=== PATIENT | male | born 1975 | race Caucasian/White ===

== ENCOUNTER 2017-01-02 13:56 | Observation (INO) | payer BC ==
--- NOTE | 2017-01-02 14:31 | ERPHSYRPT ---
- History of Present Illness Time Seen by Provider: 01/02/17 14:09 Historian: patient Patient Subjective Stated Complaint: here for pain to left side of chest radiating at times to left arm and dizziness, since friday with nausea on friday ,pt has been able to work, Triage Nursing Assessment: pt alert ,resp easy, skin w/d pink, chest clear, no edema, Physician History: CC: chest pain Hx: 41 y/o patient of Dr Moe. He has long standing hx of afib. He has no hx of CAD. He has strong fam hx of throacic aortic aneurysm. He reports chest pain in left chest for 3 days, aching, at times worse. Not short of breath. No back pain. No cough. No abd pain. No prior episodes. He spoke to B[employer]ING[employer] INTERPRETER and was told to come to ER. No rash. He takes xarelto so ASA not given. Timing/Duration: day(s) (3) Nitro Today/Relief: no nitro taken today Aspirin Treatment Today: no aspirin today (as anticoagulated ) Allergies/Adverse Reactions: No Known Drug Allergies Allergy (Unverified 01/02/17 14:07) Home Medications: Nebivolol HCl [Bystolic] 10 mg DAILY 01/02/17 [History] Rivaroxaban [Xarelto] 20 mg DAILY 01/02/17 [History] Verapamil HCl Sr 180 mg [Isoptin Sr 180Mg] 180 mg DAILY 01/02/17 [History] Hx Tetanus, Diphtheria Vaccination/Date Given: No Hx Pneumococcal Vaccination/Date Given: No Immunizations Up to Date: Yes - Review of Systems Constitutional: No Fever, No Chills Eyes: No Symptoms Ears, Nose, & Throat: No Symptoms Respiratory: No Cough, No Dyspnea Cardiac: Chest Pain, No Edema Abdominal/Gastrointestinal: No Abdominal Pain, No Nausea, No Vomiting Genitourinary Symptoms: No Dysuria Musculoskeletal: No Back Pain Skin: No Rash Neurological: No Focal Weakness, No Headache, No Parasthesia All Other Systems: Reviewed and Negative - Past Medical History Pertinent Past Medical History: Yes Cardiac History: Arrhythmia (afib), Hypertension - Past Surgical History Past Surgical History: Yes Other Surgical History: nasal - Social History Smoking Status: Never smoker Exposure to second hand smoke: No Drug Use: none 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) - Nursing Vital Signs Nursing Vital Signs: Initial Vital Signs Temperature 97.2 F 01/02/17 13:57 Pulse Rate 62 01/02/17 13:57 Respiratory Rate 16 01/02/17 13:57 Blood Pressure 151/91 01/02/17 13:57 O2 Sat by Pulse Oximetry 96 01/02/17 13:57 Pain Scale Pain Intensity 4 - Physical Exam General Appearance: alert Eye Exam: PERRL/EOMI Ears, Nose, Throat Exam: normal ENT inspection, moist mucous membranes Neck Exam: normal inspection, non-tender, supple Respiratory Exam: normal breath sounds, lungs clear Cardiovascular Exam: regular rate/rhythm, No murmur, No friction rub, No pulse deficit (good femoral, radial, DP,PT pulses) Gastrointestinal/Abdomen Exam: soft, No tenderness, No distention Back Exam: normal inspection, normal range of motion Extremity Exam: normal inspection, normal range of motion Neurologic Exam: alert, oriented x 3, cooperative, sensation nml, No motor deficits Skin Exam: warm, dry, No rash SpO2 Interpretation: normal SpO2: 99 Oxygen Delivery: Room Air - Course Nursing assessment & vital signs reviewed: Yes EKG Interpreted by Me: RATE (61), Sinus Rhythm, Left Standish Deviation, Other ( prolonged QRS with atypical LBBB) Ordered Tests: Active Orders 24 hr Category Date Time Status Welt Wheeler STAT Care 01/02/17 14:17 Active EKG-ER Only STAT Care 01/02/17 14:17 Active IV Insertion STAT Care 01/02/17 14:17 Active Pulse Oximetry (ED) STAT Care 01/02/17 14:17 Active CHEST 2 VIEWS (PA AND LAT) Stat Exams 01/02/17 14:17 Completed CBC W DIFF Stat Lab 01/02/17 14:20 Completed CMP Stat Lab 01/02/17 14:20 Completed Manual Differential NC Stat Lab 01/02/17 14:20 Completed PROTIME WITH INR Stat Lab 01/02/17 14:20 Completed PTT Stat Lab 01/02/17 14:20 Completed TROPONIN Q3H Lab 01/02/17 14:20 Completed TROPONIN Q3H Lab 01/02/17 17:20 Completed TROPONIN Q3H Lab 01/02/17 20:30 Ordered TROPONIN Q3H Lab 01/02/17 23:30 Ordered TROPONIN Q3H Lab 01/03/17 02:30 Ordered Medication Summary Discontinued Medications Generic Name Dose Route Start Last Admin Trade Name Freq PRN Reason Stop Dose Admin Diphenhydramine HCl 25 mg 01/02/17 15:44 01/02/17 16:54 Benadryl 50 Mg/Ml IV 01/02/17 15:45 25 mg STAT ONE Administration Diphenhydramine HCl Confirm 01/02/17 16:49 Benadryl 50 Mg/Ml Administered 01/02/17 16:50 Dose 50 mg .ROUTE .STK-MED ONE Diphenhydramine HCl Confirm 01/02/17 16:58 Benadryl 50 Mg/Ml Administered 01/02/17 16:59 Dose 50 mg .ROUTE .STK-MED ONE Famotidine 20 mg 01/02/17 15:44 01/02/17 16:55 Pepcid 20 Mg Vial IV 01/02/17 15:45 20 mg STAT ONE Administration Famotidine Confirm 01/02/17 16:50 Pepcid 20 Mg Vial Administered 01/02/17 16:51 Dose 20 mg IV .STK-MED ONE Famotidine Confirm 01/02/17 16:58 Pepcid 20 Mg Vial Administered 01/02/17 16:59 Dose 20 mg IV .STK-MED ONE Ketorolac Tromethamine 30 mg 01/02/17 15:44 01/02/17 16:54 Toradol 30 Mg Injection IV 01/02/17 15:45 30 mg STAT ONE Administration Ketorolac Tromethamine Confirm 01/02/17 16:49 Toradol 30 Mg Injection Administered 01/02/17 16:50 Dose 30 mg .ROUTE .STK-MED ONE Ketorolac Tromethamine Confirm 01/02/17 16:58 Toradol 30 Mg Injection Administered 01/02/17 16:59 Dose 30 mg .ROUTE .STK-MED ONE Lab/Rad Data: Laboratory Result Diagrams 01/02/17 14:20 01/02/17 14:20 Laboratory Results 01/02/17 01/02/17 01/02/17 Range/Units 17:20 14:20 14:20 WBC (4.0-10.5) K/mm3 RBC (4.1-5.6) M/mm3 Hgb (12.5-18.0) gm/dl Hct (42-50) % MCV (78-100) fl MCH (26-32) pg MCHC (32-36) g/dl RDW (11.5-14.0) % Plt Count (150-450) K/mm3 MPV (6-9.5) fl Segmented Neutrophils (36.-66.) % Lymphocytes (Manual) (24-44) % Monocytes (Manual) (0.0-12.0) % Eosinophils (Manual) (0.00-3.0) % Differential Comment Platelet Estimate (NORMAL) INR 1.14 (0.8-3.0) APTT 41.9 H (24.1-36.1) SECONDS Sodium (136-145) mEq/L Potassium (3.5-5.1) mEq/L Chloride (98-107) mEq/L Carbon Dioxide (21-32) mEq/L Anion Gap (5-15) MEQ/L BUN (9-20) mg/dL Creatinine (0.55-1.30) mg/dl Estimated GFR ML/MIN Glucose (70-110) MG/DL Calcium (8.5-10.1) mg/dL Total Bilirubin (0.2-1.0) mg/dL AST (15-37) U/L ALT (12-78) U/L Alkaline Phosphatase (46-116) U/L Troponin I < 0.017 < 0.017 (0.000-0.056) ng/ml Serum Total Protein (6.4-8.2) gm/dL Albumin (3.4-5.0) g/dL 01/02/17 01/02/17 Range/Units 14:20 14:20 WBC 9.9 (4.0-10.5) K/mm3 RBC 5.65 H (4.1-5.6) M/mm3 Hgb 16.1 (12.5-18.0) gm/dl Hct 47.9 (42-50) % MCV 84.8 (78-100) fl MCH 28.4 (26-32) pg MCHC 33.6 (32-36) g/dl RDW 13.9 (11.5-14.0) % Plt Count 190 (150-450) K/mm3 MPV 10.8 H (6-9.5) fl Segmented Neutrophils 73 H (36.-66.) % Lymphocytes (Manual) 24 (24-44) % Monocytes (Manual) 2 (0.0-12.0) % Eosinophils (Manual) 1 (0.00-3.0) % Differential Comment NORMAL Platelet Estimate NORMAL (NORMAL) INR (0.8-3.0) APTT (24.1-36.1) SECONDS Sodium 141 (136-145) mEq/L Potassium 3.9 (3.5-5.1) mEq/L Chloride 105 (98-107) mEq/L Carbon Dioxide 25.9 (21-32) mEq/L Anion Gap 14.0 (5-15) MEQ/L BUN 12 (9-20) mg/dL Creatinine 0.88 (0.55-1.30) mg/dl Estimated GFR > 60 ML/MIN Glucose 97 (70-110) MG/DL Calcium 9.6 (8.5-10.1) mg/dL Total Bilirubin 0.40 (0.2-1.0) mg/dL AST 17 (15-37) U/L ALT 30 (12-78) U/L Alkaline Phosphatase 96 (46-116) U/L Troponin I (0.000-0.056) ng/ml Serum Total Protein 7.9 (6.4-8.2) gm/dL Albumin 4.1 (3.4-5.0) g/dL - Progress Progress Note: 01/02/17 15:46 Pain stable. Atypical. He does not seem too troubled by it. CAlled Dr Darwin Buenrostro. He advised home or obs. Pt prefers home. Will get 3 hour troponin. EKG faxed to Dr Buenrostro/[facility] office as it is abnl but not acutely so. No old EKG for comparison here or from cardiology office. 01/02/17 18:08 Repeat troponin negative. Offered pt observation or home. He wants to go home. Will Rx pepcid. He has follow up with Dr Buenrostro already established. Instr given. 01/02/17 18:17 Repeat EKG has inferior T wave changes. Called DR Anabel Aquino for BILINGUAL INTERPRETER Reintjes and will place in chest pain obs for serial trponin. Pt agrees. Counseled pt/family regarding: lab results, diagnosis, need for follow-up, rad results - Departure Time of Disposition: 18:18 Departure Disposition: Observation (Tele) Clinical Impression: Atypical chest pain Condition: Fair Critical Care Time: No Referrals: TREVOR LY [Primary Care Provider] - MELLO BUENROSTRO [NON-STAFF PHY W/O PRIVILEGES] - Instructions: Atypical Chest Pain Additional Instructions: Rest Follow up with Dr Buenrostro Return for worsening, change, or concerns. Rx pepcid.
--- NOTE | 2017-01-02 14:42 | XRAY ---
Indication: Left-sided chest pain. Comparison: None PA/lateral chest clear. Heart is not enlarged. Vascularity normal. Bony thorax intact with mild spinal degenerative changes. Impression: Nonacute chest.
[2017-01-02 14:45] LABS: INR 1.14 (0.8-3.0); PROTIME 12.9 SECONDS (8.83-12.87)
[2017-01-02 14:47] LABS: PTT 41.9 SECONDS (24.1-36.1)
[2017-01-02 14:53] LABS: ALBUMIN 4.1 g/dL (3.4-5.0); ALKALINE PHOSPHATASE 96 U/L (46-116); BLOOD UREA NITROGEN 12 mg/dL (9-20); CHLORIDE 105 mEq/L (98-107); Carbon Dioxide 25.9 mEq/L (21-32); Glucose 97 MG/DL (70-110); Potassium 3.9 mEq/L (3.5-5.1); SGOT/AST 17 U/L (15-37); SGPT/ALT 30 U/L (12-78); SODIUM 141 mEq/L (136-145); Total Protein 7.9 gm/dL (6.4-8.2)
[2017-01-02] MEDS ORDERED: Pepcid 20 MG VIAL IV ONE ×3 (15:44→16:58)
[2017-01-02] MEDS ORDERED: BENADRYL 50 MG/ML IV ONE (15:44)
[2017-01-02] MEDS ORDERED: TORAdol 30 mg Injection IV ONE (15:44)
[2017-01-02 15:55] LABS: Mean Cell Volume 84.8 fl (78-100); Mean Platelet Volume 10.8 fl (6-9.5); Platelet Count 190 K/mm3 (150-450); Red Blood Count 5.65 M/mm3 (4.1-5.6); Red Cell Distribution Width 13.9 % (11.5-14.0); White Blood Count 9.9 K/mm3 (4.0-10.5)
[2017-01-02 15:59] LABS: Mean Corpuscular Hemoglobin 28.4 pg (26-32)
[2017-01-02 16:42] LABS: Eosinophil 1 % (0.00-3.0); Platelet Estimate NORMAL (NORMAL); Total Cells Counted 100
[2017-01-02] MEDS ORDERED: BENADRYL 50 MG/ML ONE ×2 (16:49→16:58)
[2017-01-02] MEDS ORDERED: TORAdol 30 mg Injection ONE ×2 (16:49→16:58)
[2017-01-02] MEDS ORDERED: BABY ASPIRIN 81 MG CHEW PO ONE (18:16)
[2017-01-02] MEDS ORDERED: Zofran 4 MG/2 ML VIAL IV PRN (18:58)
[2017-01-02] MEDS ORDERED: TYLENOL 325 MG PO PRN (18:58)
[2017-01-02] MEDS ORDERED: MAALOX ES 30 ML UNIT DOSE PO PRN (18:58)
[2017-01-02] MEDS ORDERED: MILK OF MAGNESIA 30 ML PO PRN (18:58)
[2017-01-02] MEDS ORDERED: Senokot-S Tablet PO PRN (18:58)
[2017-01-02] MEDS: Pepcid 20 MG PO SCH (23:01)
[2017-01-02] MEDS ORDERED: XARELTO 10 MG TABLET PO SCH (23:45)
[2017-01-02] MEDS ORDERED: ISOPTIN SR 180MG PO SCH (23:45)
[2017-01-02] MEDS ORDERED: Zestril 10 MG PO SCH (23:45)
[2017-01-03 04:05] VITALS: PULSE 65
[2017-01-03 07:31] VITALS: BP 129/80; O2SAT 93
--- NOTE | 2017-01-03 08:07 | PCM.HP ---
History of Present Illness - Chief Complaint Chief Complaint: chest pain, abnormal ekg Date: 01/03/17 History of Present Illness: is a 41 year old male. who presents with 4 days of a constant aching in a specific spot on the left side of his chest. there are no exacerbating or relieving factors and he has no shortness of breath, palpitations or diaphoresis with it. It does not change with activity or position changes and it is not reproducible with palpation. He thought it may have been due to stress and was putting it off but after talking to family members and his doctor's office he eventually came to ED last night to have it evaluated. He follows as an outpatient with his horse rider Dr. Webb in [facility] for paroxysmal afib and htn. IN ED troponins were negative but there appeared to be some ekg changes and thus was kept for observation. He had no new symptoms overnight the chest pain is unchanged and the ekg is consistent with the first but it appears the 2nd had avr and avl leads flipped. There are some minimal change with more t wave inversion interiorly. - Review of Systems Constitutional: No Fever, No Chills Eyes: No Symptoms Ears, Nose, & Throat: No Symptoms Respiratory: No Cough, No Short Of Breath Cardiac: Chest Pain, No Edema, No Syncope Abdominal/Gastrointestinal: No Abdominal Pain, No Nausea, No Vomiting, No Diarrhea Genitourinary Symptoms: No Dysuria Musculoskeletal: No Back Pain, No Neck Pain Skin: No Rash Neurological: No Dizziness, No Focal Weakness, No Sensory Changes Psychological: No Symptoms Endocrine: No Symptoms Hematologic/Lymphatic: No Symptoms Immunological/Allergic: No Symptoms Medications & Allergies Home Medications: Home Medication List Lisinopril 10 mg [Zestril 10 MG] 10 mg PO HS 01/02/17 [History Confirmed 01/02/17] Nebivolol HCl [Bystolic] 10 mg HS 01/02/17 [History Confirmed 01/02/17] Rivaroxaban [Xarelto] 20 mg HS 01/02/17 [History Confirmed 01/02/17] Verapamil HCl Sr 180 mg [Isoptin Sr 180Mg] 180 mg HS 01/02/17 [History Confirmed 01/02/17] Allergies/Adverse Reactions: Allergies Allergy/AdvReac Type Severity Reaction Status Date / Time No Known Drug Allergies Allergy Unverified 01/02/17 14:07 - Past Medical History Past Medical History: Yes Neurological History: No Pertinent History ENT History: No Pertinent History Cardiac History: Arrhythmia, Hypertension Respiratory History: Pneumonia Endocrine Medical History: No Pertinent History Musculoskelatal History: No Pertinent History GI Medical History: No Pertinent History History: No Pertinent History Pyscho-Social History: No Pertinent History Male Reproductive Disorders: No Pertinent History - Past Surgical History Past Surgical History: Yes Neuro Surgical History: No Pertinent History Cardiac History: No Pertinent History Respiratory Surgery: No Pertinent History GI Surgical History: No Pertinent History Genitourinary Surgical Hx: No Pertinent History Musculskeletal Surgical Hx: No Pertinent History Male Surgical History: No Pertinent History Other Surgical History: nasal, DEVIATED SEPTUM - Social History Smoking Status: Never smoker Exposure to second hand smoke: No Alcohol: Occasionally Drug Use: none - Physical Exam Vital Signs: Vital Signs - 24 hr Temp Pulse Pulse Resp BP Pulse Ox 01/03/17 07:31 98.2 F 65 18 129/80 93 L 01/03/17 04:00 97.4 F 65 16 139/81 94 L 01/03/17 00:00 98.4 F 58 L 18 140/78 92 L 01/02/17 19:59 98.4 F 62 19 143/93 93 L 01/02/17 18:23 62 18 128/80 98 01/02/17 18:18 99 01/02/17 17:02 60 18 135/96 95 01/02/17 15:05 62 16 133/97 97 01/02/17 14:24 99 01/02/17 14:04 60 01/02/17 13:57 97.2 F 62 16 151/91 96 General Appearance: no apparent distress, alert Neurologic Exam: alert, oriented x 3, cooperative, normal mood/affect, nml cerebellar function, nml station & gait, sensation nml, No motor deficits Eye Exam: PERRL/EOMI, eyes nml inspection Ears, Nose, Throat Exam: normal ENT inspection, TMs normal, pharynx normal, moist mucous membranes Neck Exam: normal inspection, non-tender, supple, full range of motion Respiratory Exam: normal breath sounds, lungs clear, No chest tenderness, No respiratory distress Cardiovascular Exam: regular rate/rhythm, normal heart sounds, normal peripheral pulses Gastrointestinal/Abdomen Exam: soft, normal bowel sounds, No tenderness, No mass Back Exam: normal inspection, normal range of motion, No CVA tenderness, No vertebral tenderness Extremity Exam: normal inspection, normal range of motion, pelvis stable Skin Exam: normal color, warm, dry, No rash Lymphatic Exam: No adenopathy Results - Labs Lab/Micro Results: Lab Results-Last 24 Hours 01/02/17 01/02/17 01/03/17 Range/Units 20:25 23:25 02:32 Troponin I < 0.017 < 0.017 < 0.017 (0.000-0.056) ng/ml - Other Procedures and Tests Respiratory Therapy 01/04/17 05:00 EKG ROUTINE 01/05/17 05:00 EKG ROUTINE 01/06/17 05:00 EKG ROUTINE Assessment/Plan (1) Atypical chest pain Status: Acute Assessment & Plan: no evidence of acute MD currently he has f/u scheduled with his horse rider for Friday and records and ekg's are faxed to their office. serial troponin negative we discussed other possible etiolgoies such as pericarditis and recommend echocardiogram which we do not have ability to have read over this holiday weekend and with appt first thing business hours with his horse rider will hold off echo until Friday with his current minimal symptoms. Discussed reasons to return to ED including new or worsening symptoms, syncope, shortness of breath, palpitations. Code(s): R07.89 - OTHER CHEST PAIN (2) Paroxysmal a-fib Status: Chronic Code(s): I48.0 - PAROXYSMAL ATRIAL FIBRILLATION (3) Hypertension Status: Chronic Code(s): I10 - ESSENTIAL (PRIMARY) HYPERTENSION
--- NOTE | 2017-01-03 08:17 | PCM.DCORD ---
- Discharge Discharge Date: 01/03/17 Disposition: Home, Self-Care Condition: Fair Prescriptions: Continue Rivaroxaban [Xarelto] 20 mg HS Nebivolol HCl [Bystolic] 10 mg HS Verapamil HCl Sr 180 mg [Isoptin Sr 180Mg] 180 mg HS Lisinopril 10 mg [Zestril 10 MG] 10 mg PO HS Instructions: Atypical Chest Pain Additional Instructions: Rest Follow up with Dr Buenrostro Return for worsening, change, or concerns. Rx pepcid. Follow up with: TREVOR LY [Primary Care Provider] - MELLO BUENROSTRO [NON-STAFF PHY W/O PRIVILEGES] - 01/07/17
[2017-01-03] MEDS: Pepcid 20 MG PO SCH (08:41)
[2017-01-03] MEDS ORDERED: Ecotrin 325 MG PO SCH (10:00)
[2017-01-03] MEDS ORDERED: Bystolic 5 MG PO SCH (22:00)
[2017-01-03] MEDS ORDERED: ISOPTIN SR 180MG PO SCH (22:00)
== END 2017-01-03 11:20 | disposition home or self-care (01) ==
LOC: ED 13:56 → MED SURG 18:36
PROVIDERS: ADMIT Family Medicine; ATTEND Family Medicine
DX: R07.89 Other chest pain (principal); I48.0 Paroxysmal atrial fibrillation; I10 Essential (primary) hypertension; Z79.01 Long term (current) use of anticoagulants; Z79.899 Other long term (current) drug therapy
CPT/HCPCS: 36000; 36415; 71020; 80053; 80061; 83721; 84484; 85025; 85610; 85730; 93005; 93041; 93268; 99285; G0378; J1200; J1885; A9270-GY

== ENCOUNTER 2017-10-29 10:03 | Inpatient (IN) | payer BC ==
[2017-10-29] MEDS ORDERED: ROCEPHIN 1 Gm-D5w 50 ml Bag** 1 G/50 ML IVPB IV SCH (10:30)
[2017-10-29] MEDS ORDERED: Sodium Chloride 0.9% 10 ML FLUSH Syringe IV PRN (10:45)
[2017-10-29 11:05] LABS: ALBUMIN 4.4 g/dL (3.5-5.0); ALKALINE PHOSPHATASE 87 U/L (38-126); ANION GAP 16.6 MEQ/L (5-15); BLOOD UREA NITROGEN 15 mg/dL (9-20); CHLORIDE 106 mmol/L (98-107); Calcium 9.4 mg/dL (8.4-10.2); Carbon Dioxide 23 mmol/L (22-30); Creatinine 1 0.66 mg/dL (0.66-1.25); Glucose 98 mg/dL (74-106); Potassium 4.4 mmol/L (3.5-5.1); SGOT/AST 21 U/L (17-59); SGPT/ALT 34 U/L (0-50); SODIUM 142 mmol/L (137-145); Total Protein 7.6 g/dL (6.3-8.2)
[2017-10-29] MEDS ORDERED: Zithromax 500 MG/ 250 ML NaCl Premix 500 MG/250 ML IVPB IV SCH (12:00)
[2017-10-29] MEDS ORDERED: Tussionex Pennkinetic Susp PO PRN (12:38)
[2017-10-29] MEDS ORDERED: Sodium Chloride 0.9% 1000 ML 1,000 ML IV STA (12:39)
--- NOTE | 2017-10-29 13:10 | XRAY ---
Exam: CT of the chest with IV contrast CTDI: 17.76 Comparison: Two-view chest from 10/29/2017. Indication: Possible pneumonia, questionable right lung nodule, cough. Technique: Post-IV contrast axial images were obtained through the chest during automated injection of 80 cc of Isovue-370 contrast material and filmed using both soft tissue and lung window techniques. In addition, axial MIP images were obtained. Reconstructed coronal and sagittal images were created and reviewed. Findings: The heart size appears within normal limits. No pericardial effusion is seen. I note some minimal scattered vascular calcification within branches of the left coronary artery on axial image #25 and #26. Correlate clinically. The lorna and mediastinal structures reveal no pathological lymphadenopathy. Although this exam was not performed using a standard PE protocol, I see no definite findings to suggest a pulmonary embolus. The thoracic aorta appears of normal diameter without dissection. The visualized lower portion of the thyroid gland appears unremarkable. The central airways appear open on the axial and coronal images. I do not see a soft tissue nodule within the right midlung field, as questioned on the PA chest film from earlier today. This must have represented a summation density of overlapping normal structures. Furthermore, I see no air space infiltrates to suggest focal pneumonia. No pneumothorax or pleural fluid is seen. There is a tiny calcified granuloma near the superior margin of the left lung apex as well as a subpleural calcified granuloma within the left posterior lung sulcus. Minimal posterior dependent compression atelectatic changes are seen adjacent to the posterior pleural surfaces. No other lung abnormality is seen. There is some diffuse fatty infiltration within the liver. The adrenal glands appear unremarkable. There is a 1.2 cm low-attenuation density which is partially imaged on the most inferior axial image #62 near the anterior margin of the upper pole of the right kidney. This perhaps relates to a renal cyst, although this is incompletely evaluated. The skeleton reveals no acute fracture or aggressive bone lesion. Small anterior lateral vertebral endplate spurs are seen within the thoracic spine. There is a small focal Schmorl's node within the anterior aspect of the superior vertebral endplate of T8 on sagittal image #90. Impression: 1. I see no air space infiltrates to suggest focal pneumonia. 2. Furthermore, a lung nodule is not seen within the right midlung field, as questioned on the earlier PA chest film from today. The density noted on the PA radiograph probably represented a summation shadow of normal structures. 3. Mild scattered left coronary artery vascular calcification is seen. Correlate clinically. 4. No other acute cardiopulmonary disease is seen. 5. Hepatic steatosis
[2017-10-29] MEDS: Sodium Chloride 0.9% 1000 ML 1,000 ML IV SCH (13:52)
[2017-10-29] MEDS: Sodium Chloride 0.9% 10 ML FLUSH Syringe IV SCH ×2 (14:12→21:51)
[2017-10-29] MEDS: TYLENOL EXTRA STRENGTH 500 MG PO PRN (14:26)
--- NOTE | 2017-10-29 16:26 | PCM.HP ---
History of Present Illness - Chief Complaint Chief Complaint: Pneumonia, lung density on cxr, diarrhea History of Present Illness: is a 42 year old male who was traveling to [place], [place] 1 week ago and started having fever, sore throat, and fatigue. He slept that night then started having cough productive of yellow and white sputum. He went to and rapid strep was negative. Was given a steroid shot. Returned in a few days, CXR was read as PNA and was given augmentin. He started having R ear pain that day, with fullness and some loss of hearing. Two days ago he noted a rash on his R forehead. He has been having some R eye exudate and also some L eye matting today. He did note a rash on his back last week that has resolved. He c/o several months of diarrhea, watery. Related to eating. Some gas pain associated with that, unable to score on a scale of 1-10. - Review of Systems Constitutional: Fever, Chills, Fatigue Eyes: Eye Pain, Eye Redness, Tearing, Other (matting) Ears, Nose, & Throat: Ear Pain, Hearing Changes, Tinnitus Respiratory: Cough, Short Of Breath, Wheezing Abdominal/Gastrointestinal: Abdominal Pain, Diarrhea Psychological: Anxiety, Depression (has been treated andis better), No Suicidal Ideations Hematologic/Lymphatic: Easy Bleeding (on xarelto) All Other Systems: Reviewed and Negative Medications & Allergies Home Medications: Home Medication List Lisinopril 10 mg [Zestril 10 MG] 10 mg PO HS 01/02/17 [History Confirmed 10/29/17] Nebivolol HCl [Bystolic] 10 mg PO HS 01/02/17 [History Confirmed 10/29/17] Rivaroxaban [Xarelto] 20 mg PO HS 01/02/17 [History Confirmed 10/29/17] Verapamil HCl Sr 180 mg [Isoptin Sr 180Mg] 180 mg PO HS 01/02/17 [History Confirmed 10/29/17] Cetirizine HCl [Zyrtec] 10 mg PO HS 10/29/17 [History Confirmed 10/29/17] Escitalopram Oxalate 10 mg [Lexapro 10 MG] 10 mg PO HS 10/29/17 [History Confirmed 10/29/17] Fluticasone Propionate [Flonase Nasal] 16 gm NS HS 10/29/17 [History Confirmed 10/29/17] Tizanidine HCl 4 mg PO HS 10/29/17 [History Confirmed 10/29/17] Allergies/Adverse Reactions: Allergies Allergy/AdvReac Type Severity Reaction Status Date / Time No Known Drug Allergies Allergy Unverified 01/02/17 14:07 - Past Medical History Past Medical History: No Neurological History: No Pertinent History ENT History: No Pertinent History Cardiac History: No Pertinent History Respiratory History: Bronchitis Endocrine Medical History: No Pertinent History Musculoskelatal History: No Pertinent History GI Medical History: No Pertinent History History: No Pertinent History Pyscho-Social History: Anxiety, Depression Male Reproductive Disorders: No Pertinent History - Past Surgical History Past Surgical History: Yes (diviated septum) Neuro Surgical History: No Pertinent History Cardiac History: No Pertinent History Respiratory Surgery: No Pertinent History GI Surgical History: No Pertinent History Genitourinary Surgical Hx: No Pertinent History Musculskeletal Surgical Hx: No Pertinent History Male Surgical History: No Pertinent History Other Surgical History: nasal, DEVIATED SEPTUM - Social History Smoking Status: Never smoker Exposure to second hand smoke: No Alcohol: Occasionally Drug Use: none - Physical Exam Vital Signs: Vital Signs - 24 hr Temp Pulse Resp BP Pulse Ox 10/29/17 16:00 98.3 F 67 18 143/74 96 10/29/17 14:00 18 10/29/17 12:01 98.2 F 53 L 18 133/87 94 L 10/29/17 10:27 98.2 F 53 L 133/87 General Appearance: no apparent distress, alert, other (appears moderately acutely ill) Neurologic Exam: oriented x 3, cooperative Eye Exam: other (conjunctival and scleral injection bilat, L>R PERRL bilat. no gerardo exudate.), No scleral icterus Neck Exam: normal inspection, non-tender, No lymphadenopathy Respiratory Exam: lungs clear, diminished breath sounds, No crackles/rales, No rhonchi, No wheezing Cardiovascular Exam: regular rate/rhythm, normal heart sounds, No murmur Gastrointestinal/Abdomen Exam: soft, normal bowel sounds, No tenderness, No distention, No mass, No guarding, No rebound Extremity Exam: normal inspection, No pedal edema, No swelling Skin Exam: warm, diaphoresis, other (cluster of vesicles on erythematous base approx 2x2cm R inferior forehead) Results - Labs Lab/Micro Results: Lab Results-Last 24 Hours 10/29/17 Range/Units 10:30 Sodium 142 (137-145) mmol/L Potassium 4.4 (3.5-5.1) mmol/L Chloride 106 (98-107) mmol/L Carbon Dioxide 23 (22-30) mmol/L Anion Gap 16.6 H (5-15) MEQ/L BUN 15 (9-20) mg/dL Creatinine 0.66 (0.66-1.25) mg/dL Estimated GFR > 60.0 ML/MIN Glucose 98 (74-106) mg/dL Calcium 9.4 (8.4-10.2) mg/dL Total Bilirubin 0.40 (0.2-1.3) mg/dL AST 21 (17-59) U/L ALT 34 (0-50) U/L Alkaline Phosphatase 87 (38-126) U/L Serum Total Protein 7.6 (6.3-8.2) g/dL Albumin 4.4 (3.5-5.0) g/dL - Radiology Impressions Radiology Exams & Impressions: Radiology Procedures Category Date Time Status CHEST WITH CONTRAST [CT] Routine Exams 10/29/17 11:30 Completed - Other Procedures and Tests Respiratory Therapy 10/29/17 11:36 BiPap/CPAP ROUTINE Assessment/Plan (1) Pneumonia Current Visit: No Status: Acute Onset Date: ~10/29/17 Qualifiers: Pneumonia type: due to unspecified organism Laterality: unspecified laterality Lung location: unspecified part of lung Qualified Code(s): J18.9 - Pneumonia, unspecified organism Assessment & Plan: Clinically. CXR read as clear. He had a similar episode 4-5 yrs ago, tx by Dr. Webb in [place]. I spoke wiht Dr. Webb's office, he is out of town but [facility] he ended up being treated with. rocephin and zithromax day #1 today. Code(s): J18.9 - PNEUMONIA, UNSPECIFIED ORGANISM (2) Herpes zoster with ophthalmic complication Current Visit: Yes Status: Acute Qualifiers: Herpes zoster ocular complication detail: unspecified herpes zoster eye disease Qualified Code(s): B02.30 - Zoster ocular disease, unspecified Assessment & Plan: question of. On acyclovir and tobradex gtts. I spoke wiht Dr. Reyez in [place] and he will see ept at 10 a.m. on Friday. Code(s): B02.30 - ZOSTER OCULAR DISEASE, UNSPECIFIED (3) Hemotympanum Current Visit: Yes Status: Acute Qualifiers: Laterality: right Qualified Code(s): H74.8X1 - Other specified disorders of right middle ear and mastoid Assessment & Plan: I spoke with ENT, Dr. Martinez, she advised watchful waiting. Advise her if full hearing loss on R. LIkely due to xarelto and cough. Code(s): H74.8X9 - OTH DISRD OF MIDDLE EAR AND MASTOID, UNSPECIFIED EAR (4) Diarrhea Current Visit: No Status: Chronic Onset Date: ~10/29/17 Qualifiers: Diarrhea type: unspecified type Qualified Code(s): R19.7 - Diarrhea, unspecified Assessment & Plan: checking stool studies and celiac panel. Code(s): R19.7 - DIARRHEA, UNSPECIFIED (5) Paroxysmal a-fib Current Visit: No Status: Chronic Assessment & Plan: On xarelto Code(s): I48.0 - PAROXYSMAL ATRIAL FIBRILLATION
[2017-10-29] MEDS: ZOVIRAX 800 MG PO SCH (19:54)
[2017-10-29] MEDS: Bystolic 5 MG PO SCH (21:30)
[2017-10-29] MEDS: CLARITIN 10 MG PO SCH (21:30)
[2017-10-29] MEDS: Mucinex 600MG ER Tabs PO SCH (21:31)
[2017-10-29] MEDS: Flonase NASAL NS SCH (21:31)
[2017-10-29] MEDS: ISOPTIN SR 180MG PO SCH (21:31)
[2017-10-29] MEDS: Lexapro 10 MG PO SCH (21:31)
[2017-10-29] MEDS: XARELTO 10 MG TABLET PO SCH (21:33)
[2017-10-29] MEDS: Zestril 10 MG PO SCH (21:33)
[2017-10-29] MEDS ORDERED: NON-FORMULARY ITEM (Cetirizine Hcl [Zyrtec] 10 MG) PO SCH (22:00)
[2017-10-29] MEDS ORDERED: Zanaflex 4 MG PO SCH (22:00)
[2017-10-30] MEDS: ZOVIRAX 800 MG PO SCH ×6 (00:01→22:26)
[2017-10-30 02:49] LABS: Appearance CLEAR (CLEAR)
[2017-10-30 02:50] LABS: Bilirubin NEGATIVE (NEGATIVE); Blood NEGATIVE Ery/ul (0-5); Glucose NEGATIVE (NEGATIVE); Ketones NEGATIVE (NEGATIVE); Leukocyte Esterase NEGATIVE (NEGATIVE); Nitrite NEGATIVE (NEGATIVE); Protein,Urine Dip NEGATIVE (Negative); Urobilinogen NORMAL mg/dL (0-1)
[2017-10-30] MEDS: Sodium Chloride 0.9% 1000 ML 1,000 ML IV SCH ×2 (03:10→16:10)
[2017-10-30] MEDS: TYLENOL EXTRA STRENGTH 500 MG PO PRN ×3 (04:36→22:24)
[2017-10-30] MEDS: Sodium Chloride 0.9% 10 ML FLUSH Syringe IV SCH (05:39)
[2017-10-30] MEDS ORDERED: PROVENTIL 2.5 MG/3 ML NEB IH PRN (09:18)
--- NOTE | 2017-10-30 09:22 | PCM.NOTE ---
Date and Time: 10/30/17918 Subjective Assessment: Pt not feeling much better, cough is tiresome. Ear still full/ringing, does have some hearing in the R ear. no loose stools since admission. Objective Exam General Appearance: no apparent distress, alert Neurologic Exam: oriented x 3, cooperative Skin Exam: normal color, warm, dry, other (R forehead with raised erythematous area, vesicles on erythematous base, approx 2x2cm) Eye Exam: eyes nml inspection Ears, Nose, Throat Exam: other (R TM with purple discoloration. L TM wnl.) Neck Exam: normal inspection Respiratory Exam: normal breath sounds, lungs clear, No crackles/rales, No rhonchi, No wheezing Cardiovascular Exam: regular rate/rhythm, normal heart sounds, No murmur Extremity Exam: No pedal edema, No swelling Back Exam: normal inspection, No rash OBJECTIVE DATA Vital Signs: Vital Signs - 24 hr Temp Pulse Resp BP Pulse Ox 10/30/17 07:06 97.9 F 59 L 20 111/59 98 10/30/17 04:10 98.3 F 57 L 18 147/92 96 10/29/17 23:54 99.0 F 78 16 146/90 96 10/29/17 19:55 99.1 F 73 18 146/78 97 10/29/17 17:57 18 10/29/17 16:00 98.3 F 67 18 143/74 96 10/29/17 14:00 18 10/29/17 12:01 98.2 F 53 L 18 133/87 94 L 10/29/17 10:27 98.2 F 53 L 133/87 Pain Assessment - Last Documented Pain Intensity 3 Pain Scale Used 0-10 Pain Scale Intake and Output: Intake & Output 10/27/17 10/28/17 10/29/17 10/30/17 11:59 11:59 11:59 11:59 Intake Total 4553 Output Total 500 Balance 4053 Weight 115.2 kg Lab Results: Lab Results-Last 24 Hours 10/29/17 10/29/17 10/30/17 Range/Units 10:30 16:40 01:00 Sodium 142 (137-145) mmol/L Potassium 4.4 (3.5-5.1) mmol/L Chloride 106 (98-107) mmol/L Carbon Dioxide 23 (22-30) mmol/L Anion Gap 16.6 H (5-15) MEQ/L BUN 15 (9-20) mg/dL Creatinine 0.66 (0.66-1.25) mg/dL Estimated GFR > 60.0 ML/MIN Glucose 98 (74-106) mg/dL Calcium 9.4 (8.4-10.2) mg/dL Total Bilirubin 0.40 (0.2-1.3) mg/dL AST 21 (17-59) U/L ALT 34 (0-50) U/L Alkaline Phosphatase 87 (38-126) U/L Troponin I < 0.012 (0.000-0.034) ng/mL Serum Total Protein 7.6 (6.3-8.2) g/dL Albumin 4.4 (3.5-5.0) g/dL Ur Collection Type CLEAN CATCH Urine Color LT.YELLOW (YELLOW) Urine Appearance CLEAR (CLEAR) Urine pH 6.0 (5-6) Ur Specific [employer] 1.020 (1.005-1.025) Urine Protein NEGATIVE (Negative) Urine Ketones NEGATIVE (NEGATIVE) Urine Blood NEGATIVE (0-5) Pawan/ul Urine Nitrite NEGATIVE (NEGATIVE) Urine Bilirubin NEGATIVE (NEGATIVE) Urine Urobilinogen NORMAL (0-1) mg/dL Ur Leukocyte Esterase NEGATIVE (NEGATIVE) Urine Glucose NEGATIVE (NEGATIVE) mg/dL Specimen Received 10/30/17 0100 Radiology Exams: Radiology Procedures Category Date Time Status CHEST WITH CONTRAST [CT] Routine Exams 10/29/17 11:30 Completed Assessment/Plan (1) Pneumonia Current Visit: No Status: Acute Onset Date: ~10/29/17 Qualifiers: Pneumonia type: due to unspecified organism Laterality: unspecified laterality Lung location: unspecified part of lung Qualified Code(s): J18.9 - Pneumonia, unspecified organism Assessment & Plan: Dr. Webb's office had treated wiht Levaquin - since no better today, changing to levaquin IV. add albuterol nebs and steroid IV. tessalon gerald per pt request. Code(s): J18.9 - PNEUMONIA, UNSPECIFIED ORGANISM (2) Herpes zoster with ophthalmic complication Current Visit: Yes Status: Acute Qualifiers: Herpes zoster ocular complication detail: unspecified herpes zoster eye disease Qualified Code(s): B02.30 - Zoster ocular disease, unspecified Assessment & Plan: Set up to see ophtho on Friday (4d). On acyclovir day #2. starting steroid as above. Code(s): B02.30 - ZOSTER OCULAR DISEASE, UNSPECIFIED (3) Hemotympanum Current Visit: Yes Status: Acute Qualifiers: Laterality: right Qualified Code(s): H74.8X1 - Other specified disorders of right middle ear and mastoid Assessment & Plan: will observe. any sudden loss in hearing he will notify me. Code(s): H74.8X9 - OTH DISRD OF MIDDLE EAR AND MASTOID, UNSPECIFIED EAR (4) Diarrhea Current Visit: No Status: Chronic Onset Date: ~10/29/17 Qualifiers: Diarrhea type: unspecified type Qualified Code(s): R19.7 - Diarrhea, unspecified Code(s): R19.7 - DIARRHEA, UNSPECIFIED (5) Paroxysmal a-fib Current Visit: No Status: Chronic Code(s): I48.0 - PAROXYSMAL ATRIAL FIBRILLATION
[2017-10-30] MEDS: Levofloxacin 500MG/100ML D5W 500 MG/100 ML BAG IV SCH (10:00)
[2017-10-30] MEDS: solu-MEDROL 40 MG IV SCH ×3 (10:00→22:23)
[2017-10-30] MEDS: Tessalon Perles 100 MG PO PRN (10:00)
[2017-10-30] MEDS: Mucinex 600MG ER Tabs PO SCH ×2 (10:00→22:23)
[2017-10-30] MEDS ORDERED: Cyclobenzaprine 10 MG PO SCH (22:00)
[2017-10-30] MEDS: CLARITIN 10 MG PO SCH (22:22)
[2017-10-30] MEDS: Bystolic 5 MG PO SCH (22:22)
[2017-10-30] MEDS: Flonase NASAL NS SCH (22:22)
[2017-10-30] MEDS: ISOPTIN SR 180MG PO SCH (22:23)
[2017-10-30] MEDS: Lexapro 10 MG PO SCH (22:23)
[2017-10-30] MEDS: Zestril 10 MG PO SCH (22:24)
[2017-10-30] MEDS: XARELTO 10 MG TABLET PO SCH (22:24)
[2017-10-31] MEDS: Tessalon Perles 100 MG PO PRN (03:35)
[2017-10-31] MEDS: TYLENOL EXTRA STRENGTH 500 MG PO PRN (03:45)
[2017-10-31 05:45] LABS: Granulocyte Absolute (ANC) 17.87 (1.4-6.9); Hematocrit 44.1 % (42-50); Hemoglobin 14.8 gm/dl (12.5-18.0); Mean Cell Volume 84.2 fl (78-100); Mean Corpuscular Hemoglobin 28.2 pg (26-32); Mean Corpuscular Hgb Concent. 33.6 g/dl (32-36); Mean Platelet Volume 9.6 fl (6-9.5); Platelet Count 223 K/mm3 (150-450); Red Blood Count 5.24 M/mm3 (4.1-5.6); Red Cell Distribution Width 14.1 % (11.5-14.0)
[2017-10-31 05:59] LABS: ANION GAP 17.6 MEQ/L (5-15); BLOOD UREA NITROGEN 8 mg/dL (9-20); CHLORIDE 105 mmol/L (98-107); Calcium 9.5 mg/dL (8.4-10.2); Carbon Dioxide 21 mmol/L (22-30); Creatinine 1 0.52 mg/dL (0.66-1.25); Glucose 247 mg/dL (74-106); Potassium 4.5 mmol/L (3.5-5.1); SODIUM 139 mmol/L (137-145)
[2017-10-31] MEDS: ZOVIRAX 800 MG PO SCH ×2 (06:58→11:01)
[2017-10-31] MEDS: Sodium Chloride 0.9% 1000 ML 1,000 ML IV SCH (06:58)
[2017-10-31 08:07] LABS: BAND 4 % (0.0-2.0); Lymphocytes 14 % (24-44); Metamyelocyte 2 %; Monocyte 3 % (0.0-12.0); Neutrophils 77 % (36.-66.); Platelet Estimate NORMAL (NORMAL); Total Cells Counted 100
[2017-10-31] MEDS: Levofloxacin 500MG/100ML D5W 500 MG/100 ML BAG IV SCH (10:03)
[2017-10-31] MEDS: solu-MEDROL 40 MG IV SCH (10:05)
[2017-10-31] MEDS: Mucinex 600MG ER Tabs PO SCH (10:05)
[2017-10-31 10:54] VITALS: BP 142/74; PULSE 77; O2SAT 95
--- NOTE | 2017-10-31 13:25 | PCM.DS ---
Discharge Summary Date of Admission: 10/29/17 10:12 Admitting Physician: SHABBIR CHARLES Primary Care Provider: TREVOR LY Allergies Allergies No Known Drug Allergies Allergy (Unverified 01/02/17 14:07) Hospital Summary - Hospital Course Hospital Course: Pt admitted with clinical pneumonia after failing outpatient augmentin. He was placed on IV rocephin and zithromax; after no improvement in 24 hours was changed to IV levaquin. His CXR and CT chest were negative, but he had had chills and severe cough. Cough is persistent despite steroids and nebulizer. Pt to be discharged on levaquin (10d total) and will f/u outpatient with JAY Dubon in Dr. Webb's office. Pt also found to have hemotympanum; was discussed with Dr. Martinez, ENT in [place] - pt to contact physician LAMAR if loses hearing in that ear. Otherwise needs follow up and expect gradual resolution. Pt has chronic diarrhea - did not have any during his stay, however. Stool studies were ordered. Pt has a lesion on R forehead with some eye discomfort; was thought to have likely varicella zoster, possibility of opthalmicus. I did discuss with Dr. Reyez, Admission Specialist, and pt is to f/u with him on Friday. - Vitals & Intake/Output Vital Signs: Vital Signs Temperature 98 F 10/31/17 10:53 Pulse Rate 77 10/31/17 10:53 Respiratory Rate 20 10/31/17 10:53 Blood Pressure 142/74 10/31/17 10:53 O2 Sat by Pulse Oximetry 95 10/31/17 10:53 Intake & Output: Intake & Output 10/29/17 10/30/17 10/31/17 11/01/17 11:59 11:59 11:59 11:59 Intake Total 4553 3994 420 Output Total 500 1900 Balance 4053 2094 420 Weight 115.2 kg 115.2 kg - Lab Result Diagrams: 10/31/17 05:40 10/31/17 05:40 Lab Results-Last 24 Hrs: Lab Results-Last 24 Hours 10/31/17 10/31/17 Range/Units 05:40 05:40 WBC 21.0 H (4.0-10.5) K/mm3 RBC 5.24 (4.1-5.6) M/mm3 Hgb 14.8 (12.5-18.0) gm/dl Hct 44.1 (42-50) % MCV 84.2 (78-100) fl MCH 28.2 (26-32) pg MCHC 33.6 (32-36) g/dl RDW 14.1 H (11.5-14.0) % Plt Count 223 (150-450) K/mm3 MPV 9.6 H (6-9.5) fl Absolute Granulocytes 17.87 H (1.4-6.9) Segmented Neutrophils 77 H (36.-66.) % Band Neutrophils 4 H (0.0-2.0) % Lymphocytes (Manual) 14 L (24-44) % Monocytes (Manual) 3 (0.0-12.0) % Metamyelocytes 2 % Platelet Estimate NORMAL (NORMAL) RBC Morphology NORMAL Sodium 139 (137-145) mmol/L Potassium 4.5 (3.5-5.1) mmol/L Chloride 105 (98-107) mmol/L Carbon Dioxide 21 L (22-30) mmol/L Anion Gap 17.6 H (5-15) MEQ/L BUN 8 L (9-20) mg/dL Creatinine 0.52 L (0.66-1.25) mg/dL Estimated GFR > 60.0 ML/MIN Glucose 247 H (74-106) mg/dL Calcium 9.5 (8.4-10.2) mg/dL - Procedures and Test Procedures and Tests throughout Hospitalization: Therapy Orders & Screens 10/29/17 10:27 EKG ROUTINE Comment: Diagnosis: Pneumonia, lung density on cxr, diarrhea 10/29/17 11:36 BiPap/CPAP ROUTINE Comment: Diagnosis: Pneumonia, lung density on cxr, diarrhea 10/30/17 16:18 Respiratory Nebulizer PRN Comment: DUONEB Q4PRN Diagnosis: Pneumonia, lung density on cxr, diarrhea Discharge Exam General Appearance: no apparent distress, alert Neurologic Exam: oriented x 3, cooperative Skin Exam: warm, dry, other (lesion on R forehead is now flat instead of raised ; vesicles are scabbing/dry) Respiratory Exam: normal breath sounds, lungs clear, No crackles/rales, No rhonchi, No wheezing Cardiovascular Exam: regular rate/rhythm, normal heart sounds, No murmur Gastrointestinal/Abdomen Exam: soft, No tenderness, No distention Extremity Exam: No pedal edema, No swelling Back Exam: normal inspection, No rash Final Diagnosis/Problem List - Final Discharge Diagnosis/Problem (1) Pneumonia Current Visit: No Status: Acute Onset Date: ~10/29/17 Assessment & Plan: Clinically. I did speak with JAY Dubon at Dr. Webb's office - she will have the pt call Friday and will see him next week. Will give 8d of levaquin to finish 10d course. Possibility this began with a sinusitis; in any case, treating with levaquin is appropriate. Will stop nebs and steroids as they did not seem to improve his symptoms. Still has quite a cough. (2) Herpes zoster with ophthalmic complication Current Visit: Yes Status: Acute Assessment & Plan: Will have him finish 7d of acyclovir. (3) Hemotympanum Current Visit: Yes Status: Acute Assessment & Plan: WIll need to f/u with PCP for resolution. (4) Diarrhea Current Visit: No Status: Chronic Onset Date: ~10/29/17 Assessment & Plan: none here. (5) Paroxysmal a-fib Current Visit: No Status: Chronic Assessment & Plan: stable. - Discharge Disposition: Home, Self-Care Condition: Good Prescriptions: New Cyclobenzaprine HCl 10 mg [Cyclobenzaprine 10 MG] 10 mg PO HS #5 tablet Levofloxacin [Levaquin] 500 mg PO DAILY #8 tablet Tobramycin Sulfate/Dexameth [Tobradex Eye Drops] 1 ml OP QID #1 bottle Acyclovir 800 mg [Zovirax 800 mg] 800 mg PO 5XD #25 tablet Continue Rivaroxaban [Xarelto] 20 mg PO HS Nebivolol HCl [Bystolic] 10 mg PO HS Verapamil HCl Sr 180 mg [Isoptin Sr 180Mg] 180 mg PO HS Lisinopril 10 mg [Zestril 10 MG] 10 mg PO HS Tizanidine HCl 4 mg PO HS Escitalopram Oxalate 10 mg [Lexapro 10 MG] 10 mg PO HS Fluticasone Propionate [Flonase Nasal] 16 gm NS HS Cetirizine HCl [Zyrtec] 10 mg PO HS Additional Instructions: CALL ADELIA THOMPSON ON FRIDAY FOR APPT NEXT WEEK, OFFICE IS CLOSED ON FRIDAY. Follow up with: TREVOR LY [Primary Care Provider] - 1 Week
[2017-10-31 13:45] LABS: Endomysial IgA Screen Neg. at 1:5 (Neg. at 1:5); Endomysial Titer-IgA Not Indicated (Not Indicated); IgA 313 mg/dL (70-400)
[2017-11-01 00:22] LABS: Gliadin Dp IgA Ab <0.2 U/mL (0.0-14.9); Interp Test for Celiacsero See Result Note:
== END 2017-10-31 14:40 | disposition home or self-care (01) | DRG 194 ==
LOC: OBSVTOIN 10:12 → MED SURG 10:12
PROVIDERS: ADMIT Family Medicine; ATTEND Family Medicine
DX: J18.9 Pneumonia, unspecified organism (principal); B02.30 Zoster ocular disease, unspecified; H74.8X1 Other specified disorders of right middle ear and mastoid; R19.7 Diarrhea, unspecified; I48.0 Paroxysmal atrial fibrillation; F41.9 Anxiety disorder, unspecified
CPT/HCPCS: 36415; 71260; 80048; 80053; 81002; 82784; 83516; 84484; 85025; 86255; 93005; 94150; 94640; 94760; J0456; J0696; J1956; J2920; J7609; A9270-GY

== ENCOUNTER 2018-12-07 10:30 | Day surgery (SDC) | payer BC ==
[~2018-12-07 10:30] MED LIST: Lactated Ringers 1,000 ML IV SCH; MEFOXIN 2 GM PREMIX** 2 GM/50 ML ML IV ONE
[2018-12-07] MEDS ORDERED: Lactated Ringers 0 ML IV ONE (10:38)
[2018-12-07] MEDS ORDERED: MEFOXIN 2 GM PREMIX** 2 GM/50 ML ML IV ONE (10:38)
[2018-12-07] MEDS ORDERED: Zemuron 100 MG/10 ML ONE (10:41)
[2018-12-07] MEDS ORDERED: DIPRIVAN 200 MG/20 ML IV ONE (10:41)
[2018-12-07] MEDS ORDERED: Quelicin Fliptop 200 MG/10 ML ONE (10:41)
[2018-12-07] MEDS ORDERED: SUBLIMAZE 100 MCG/2 ML ONE ×2 (10:42→12:54)
--- NOTE | 2018-12-07 10:42 | HP ---
DATE OF SURGERY: 12/07/2018 HISTORY OF PRESENT ILLNESS: The patient is a 43 year-old with abdominal pain, change in bowel movements. No jaundice. CT scan showed cholelithiasis and kidney cyst was all. PAST MEDICAL HISTORY: Atrial fibrillation. Polycystic kidney disease. Hypertension. Anxiety. PAST SURGICAL HISTORY: No prior abdominal surgery. MEDICATIONS: Hydrochlorothiazide, cetirizine, Bystolic, Verapamil, tizanidine, lisinopril, Xarelto, escitalopram. ALLERGIES: NKDA. FAMILY HISTORY: Hypertension. SOCIAL HISTORY: No smoking. Occasional alcohol use denies abuse. REVIEW OF SYSTEMS: Fourteen systems reviewed per admission assessment. No chest pain or palpitations other systems negative or noncontributory as above and per preadmission questionnaire. PHYSICAL EXAMINATION: GENERAL: No acute distress. HEENT: Sclerae nonicteric. NECK: No JVD. CHEST: Equal excursion, nonlabored breathing. CVS: Regular rate and rhythm. ABDOMEN: Soft, mild tenderness right abdomen. No peritoneal signs. EXTREMITIES: No significant edema. NEURO: Alert, oriented, moving extremities symmetrically. No gross motor deficits noted. IMPRESSION: Symptomatic cholelithiasis, probable chronic cholecystitis. I feel he would benefit from cholecystectomy. Shown the gallbladder pamphlet and risk sheet, explained the procedure in detail including but not limited to bleeding or infection, risk of trocar injury or hernia, small risk of bowel, bladder or blood vessel injury, small risk of bile leak, bile duct injury, retained stone or sludge possibly requiring further procedure either open or ERCP, general risk of anesthesia, deep venous thrombosis, pulmonary embolism, pneumonia, perioperative risk of aches, pains, bloating, constipation and/or loose stool possibly chronic in nature. He understands and agrees to the planned procedure, will proceed with laparoscopic cholecystectomy possible open as an outpatient.
[2018-12-07] MEDS ORDERED: Decadron 4 MG INJ ONE (12:21)
[2018-12-07] MEDS ORDERED: BRIDION 200MG/2ML IV ONE (12:21)
[2018-12-07] MEDS ORDERED: Zofran 4 MG/2 ML VIAL ONE (12:21)
[2018-12-07] MEDS ORDERED: TORAdol 30 mg Injection ONE (12:21)
[2018-12-07] MEDS ORDERED: ROBINUL ONE (12:26)
[2018-12-07] MEDS ORDERED: DILAUDID 2 MG INJECTION ONE (12:54)
[2018-12-07] MEDS ORDERED: MORPHINE SULFATE 10 MG/ML ONE (13:21)
[2018-12-07] MEDS ORDERED: Sensorcaine 0.25% 10 ML ONE (13:30)
--- NOTE | 2018-12-07 13:51 | OP ---
SURGERY DATE/TIME: 12/07/2018 1212 PREOPERATIVE DIAGNOSIS: Symptomatic cholelithiasis, chronic cholecystitis. POSTOPERATIVE DIAGNOSIS: Symptomatic cholelithiasis, severe chronic cholecystitis. PROCEDURE: Laparoscopic cholecystectomy. SURGEON: Dr. Krish Bess. ANESTHESIA: General. ESTIMATED BLOOD LOSS: Minimal. INDICATIONS: As noted above. Risks and benefits explained in detail but not limited to and consent obtained. DESCRIPTION OF PROCEDURE AND FINDINGS: The patient was taken to the operating room. General anesthesia induced. Abdomen prepped and draped in the usual sterile fashion. After official time out and no disagreement with planned procedure, a transverse incision made at the supraumbilical area. Fascia grasped and pulled upward. Veress needle inserted and tested with saline. Pneumoperitoneum accomplished insufflating opening pressure of 0-15. An 11 mm bladeless port and camera inserted without difficulty followed by two - 5 mm right upper quadrant ports and 5 mm epigastric port. The gallbladder grasped retracted over the edge of the liver. It had extensive fibrofatty chronic inflammatory reaction. Dissecting posterior, lateral to anterior fashion slowly and carefully. Cystic duct and infundibular area slowly and carefully well skeletonized until the critical view obtained both anteriorly and posteriorly. Cystic artery was carefully isolated until critical view obtained. Once the critical view was obtained, both anteriorly and posteriorly the cystic duct and cystic artery clipped x3 and divided in usual fashion. Gallbladder slowly and carefully dissected free from its dense attachment to liver bed and clipping additional side branch off the cystic artery as necessary directly on the gallbladder wall. Just prior to releasing from final attachments to the anterior edge of the liver, the liver bed re-inspected. Clips noted in place cystic duct and cystic artery stumps. There were no signs of any active bleeding or bile leakage. It was felt there was no benefit in drain placement. Gallbladder released from final attachments to anterior edge of the liver, placed in Pleatman sac and pulled up into the supraumbilical port site. Decompressed of some bile. It was able to be pulled free and passed off. The fascia defect 11 side port closed with puncture closure device with #1 Vicryl. Liver bed re-inspected one last time. Clips noted in place cystic duct and cystic artery stumps. There were no signs of any active bleeding or bile leakage. It was felt there is no benefit in drain placement. At this point pneumoperitoneum decompressed. The wound was irrigated out. Skin incision closed with 4-0 Vicryl. Steri-Strips and sterile dressing applied. 0.25% Marcaine local injected along the skin incision fascial defect. The patient tolerated the procedure well. There were no immediate complications. Findings discussed with the family out in the waiting area.
[2018-12-07 15:16] VITALS: O2SAT 95
[2018-12-07 15:17] VITALS: BP 132/65; PULSE 68
== END 2018-12-07 15:50 | disposition home or self-care (01) ==
LOC: SDC 10:30
PROVIDERS: ATTEND Surgery
DX: K80.10 Calculus of gallbladder with chronic cholecystitis without obstruction (principal)
CPT/HCPCS: J0330; J0694; J1100; J1170; J1885; J2270; J2405; J2704; J3010

== ENCOUNTER 2022-12-02 10:19 | Day surgery (SDC) | payer BC ==
--- NOTE | 2022-12-02 07:59 | HP ---
DATE OF SURGERY: 12/02/2022 HISTORY OF PRESENT ILLNESS: The patient is a 47-year-old with nodule on chest enlarging since 2018. No pain. Family history of grandmother with breast cancer and feels that she might have been injured or trauma to that area. PAST MEDICAL HISTORY: Hypertension, atrial fibrillation, polycystic kidney disease, depression, hyperlipidemia, atherosclerotic disease, steatosis of the liver in the past. PAST SURGICAL HISTORY: Cholecystectomy. Cystoscopy. Colonoscopy. MEDICATIONS: Hydrochlorothiazide, Xarelto, Ozempic, lisinopril, Farxiga, Flonase, escitalopram, cholestyramine, Bystolic, aspirin. ALLERGIES: NKDA. FAMILY HISTORY: Fibromyalgia, arthritis, hypertension, heart disease, thyroid disease, chronic obstructive pulmonary disease. Father had abdominal aortic aneurysm. SOCIAL HISTORY: No smoking or alcohol abuse. REVIEW OF SYSTEMS: Fourteen systems reviewed. No chest pain or palpitations. Other systems negative or noncontributory as above and per preadmission questionnaire. PHYSICAL EXAMINATION: Height 6 foot. BMI 33. GENERAL: No acute distress. HEENT: Sclerae nonicteric. EOMI. Oral mucous membranes moist. NECK: No JVD. CHEST: Equal excursion, nonlabored breathing. CVS: Regular rate and rhythm. ABDOMEN: Soft. No peritoneal signs. EXTREMITIES: No significant edema. NEURO: Alert, moving extremities symmetrically. RECTAL: Deferred timed to endoscopy exam. PSYCH: Appropriate mood and affect. SKIN: Dry. LAB DATA AND TESTS: Suspicious mass or nodule what radiology feels is a benign axillary node, difficult to see. IMPRESSION: Enlarging nodule on chest. Options discussed. The patient prefers to go ahead and proceed with excision for definitive path. The patient also has a subcu mass enlarging over time and desires excision of the scalp cyst, lipoma or other irregularity of the scalp. Risk of bleeding or infection possibly requiring packing, general risk of aches, pains, burning or numbness. General risk of anesthesia, deep venous thrombosis, pulmonary embolism, or pneumonia. Possibility of recurrence of all the nodules or cysts in other locations possibly requiring other procedure. Continue medication for his atrial fibrillation, coronary artery disease and hypertension. Will proceed for excision of scalp cyst and excision of chest wall nodule as an outpatient.
[~2022-12-02 10:19] MED LIST changes: +Lactated Ringers 1,000 ML IV ONE; -Lactated Ringers 1,000 ML IV SCH; -MEFOXIN 2 GM PREMIX** 2 GM/50 ML ML IV ONE; +Sensorcaine 0.25% 10 ML ONE
[2022-12-02] MEDS ORDERED: TORAdol 30 mg Injection IJ ONE (10:20)
[2022-12-02] MEDS ORDERED: Sensorcaine 0.25% 10 ML IJ ONE (10:20)
[2022-12-02] MEDS ORDERED: Lactated Ringers 1,000 ML IV ONE (10:46)
[2022-12-02] MEDS: Lactated Ringers 1,000 ML IV SCH ×2 (10:49→11:36)
[2022-12-02 11:19] VITALS: RESP 16
[2022-12-02] MEDS ORDERED: CEFAZOLIN 2 GM-D5W BAG** 2 GM/50 ML ML IV SCH (11:30)
[2022-12-02] MEDS ORDERED: CEFAZOLIN 2 GM-D5W BAG** 2 GM/50 ML ML IV ONE (11:32)
[2022-12-02] MEDS ORDERED: DIPRIVAN 200 MG/20 ML IV ONE (11:48)
[2022-12-02] MEDS ORDERED: Versed 2 MG/2 ML Injection ONE (11:48)
[2022-12-02] MEDS ORDERED: SUBLIMAZE 100 MCG/2 ML ONE ×3 (11:48→13:49)
[2022-12-02] MEDS ORDERED: Quelicin Fliptop 200 MG/10 ML ONE (11:48)
[2022-12-02] MEDS ORDERED: Zemuron 100 MG/10 ML ONE ×2 (12:12→12:34)
[2022-12-02] MEDS ORDERED: BACIGUENT 30 GM ONE (12:58)
[2022-12-02] MEDS ORDERED: BRIDION 200MG/2ML IV ONE (13:03)
[2022-12-02] MEDS ORDERED: Hydromorphone 1 mg/ml Injection ONE (14:22)
--- NOTE | 2022-12-02 15:17 | OP ---
SURGERY DATE/TIME: 12/02/2022 1156 PREOPERATIVE DIAGNOSIS: Enlarging nodule versus cyst chest and scalp. POSTOPERATIVE DIAGNOSIS: Enlarging nodule versus cyst chest and scalp. PROCEDURES: 1) Excisional biopsy of approximately 4 cm subcutaneous scalp lipoma (approximately 4 cm). 2) Excisional biopsy of 1 cm scalp cyst. 3) Excisional biopsy of approximately 2.5 cm subcu chest wall lipomatous density and nodule. SURGEON: Dr. Krish Bess. ANESTHESIA: General. ESTIMATED BLOOD LOSS: Minimal. INDICATIONS: As noted above. Risks and benefits explained in detail and not limited to and consent obtained. The sites have been confirmed and marked in the preoperative holding area. DESCRIPTION OF PROCEDURE AND FINDINGS: The patient is taken to the operating room. General anesthesia induced. The patient is prepped and draped in the usual sterile fashion. After official time out and no disagreement with planned procedure, starting first with the chest wall. A small sliver of skin was taken over top of it with dissection carried deep and around. There was a little bit denser more superficial area but appeared to have a lipomatous density directly underneath this. This is carefully dissected free and measured about 2 to 2.5 cm, carefully dissected off of the underlying fascia and passed off. This subcu lipomatous density was from the area towards the top. The subcu area closed with 3-0 Vicryl, skin closed with 4-0 Vicryl. 0.25% Marcaine local injected along the area associated with this spot. Attention then turned to the anterior scalp area. The smaller area appeared to be a cyst next to an old scar. Dissection carried around small sliver of skin. Dissection carried deep circumferentially around it and measured about 1 cm in size and passed off for pathology, closed with 3-0 Vicryl and 3-0 Prolene. Good hemostasis noted. Attention was then turned to the posterior scalp subcutaneous mass. A small sliver of skin taken over the top of it. Dissection carried deep to it. This cyst appeared more lipomatous. It appeared to be denser than a normal subcu lipoma. On the scalp dissection carried circumferentially around this and dissected off the underlying fascia and subcu. The lipomatous density is about 4 cm in size and passed off for pathology. Good hemostasis noted. The wound is then closed in layers in intermediate fashion interrupted 3-0 Vicryl in the subcu and underlying fascia to reduce the space. The skin is closed with vertical mattress 3-0 Prolene. Good hemostasis noted. 0.25% Marcaine local injected along the scalp area. Sterile dressing applied and head wrap. The patient tolerated the procedure well. There were no immediate complications. Findings discussed with the family out in the waiting area.
[2022-12-02 16:06] VITALS: BP 119/89; PULSE 62; TEMP 97.3; O2SAT 94
== END 2022-12-02 16:00 | disposition home or self-care (01) ==
LOC: SDC 10:19
PROVIDERS: ATTEND Surgery
DX: L72.11 Pilar cyst (principal); Z80.3 Family history of malignant neoplasm of breast; Z79.899 Other long term (current) drug therapy; E11.9 Type 2 diabetes mellitus without complications
CPT/HCPCS: 82947; 88304; 93005; J0330; J0690; J1170; J1885; J2250; J2704; J3010; A9270-GY

== ENCOUNTER 2023-03-25 07:24 | Emergency (ER) | payer BC ==
[2023-03-25 07:38] VITALS: TEMP 97.9
--- NOTE | 2023-03-25 07:59 | ERPHSYRPT ---
- History of Present Illness Time Seen by Provider: 03/25/23 07:40 Source: patient Exam Limitations: no limitations Patient Subjective Stated Complaint: Left sided rib pain Triage Nursing Assessment: Patient ambulated back to ED and transferred self to bed. Patient A+O X3. Patient's skin pink, warm and dry. Patient complains of left sided rib pain 7/10 intermittent sharp pain. Patient states he has been climbing into tree stands this past week and also got a flu shot to left arm. Patient states on occasion the pain will go up into his chest. Lungs clear a/p jennie. Patient denies recent trauma or injury to area. No bruising or visible injuries noted to left side ribs. Physician History: Patient is a 47-year-old male presents to our ED for evaluation of left rib pain that started yesterday. Pain described as a intermittent sharp sensation rated 7 out of 10 when it occurs. No active pain at this time. Patient has been more physically active lately. Patient states he has been climbing up and down ladders. No falls no blunt trauma. No associated nausea vomiting or diaphoresis. Pain worse with deep breathing. Patient dates pain worse with movement however unable to reproduce pain with movement at time of this encounter. Patient states he is diabetic. Patient recently had a cardiac catheterization procedure done which did not reveal any significant stenotic lesions. Patient otherwise feels well. He voices no other complaints or concerns at this time. Portions of this note were created with voice recognition technology. There may be grammatical, spelling, punctuation or sound alike errors Timing/Duration: yesterday Severity: moderate Modifying Factors: Improves With: nothing Associated Symptoms: denies symptoms Allergies/Adverse Reactions: No Known Drug Allergies Allergy (Verified 03/25/23 07:32) Home Medications: Lisinopril 10 mg [Zestril 10 MG] 20 mg PO HS 01/02/17 [History] Nebivolol HCl [Bystolic] 10 mg PO HS 01/02/17 [History] Verapamil HCl Sr [Isoptin Sr] 180 mg PO DAILY 01/02/17 [History] Escitalopram Oxalate [Lexapro] 20 mg PO DAILY 10/29/17 [History] Fluticasone Propionate [Flonase Nasal] 16 gm NS HS PRN 10/29/17 [History] Hydrochlorothiazide 25 mg [hydroDIURIL 25 MG] 1 tab PO DAILY 12/01/18 [ History] Aspirin EC 81 mg [Ecotrin 81 mg] 81 mg PO DAILY 11/07/22 [History] Cholestyramine Light 4 gm [QUESTRAN Light 4 GM Packet] 3 packet PO UD 11/07/22 [History] Dapagliflozin Propanediol [Farxiga] 10 mg PO UD 11/07/22 [History] Semaglutide [Ozempic] 1 syringe SQ WEEKLY 11/07/22 [History] Glimepiride 3 mg PO DAILY 12/02/22 [History] Rosuvastatin Calcium 40 mg PO DAILY 12/02/22 [History] Hx Tetanus, Diphtheria Vaccination/Date Given: No Hx Influenza Vaccination/Date Given: Yes Hx Pneumococcal Vaccination/Date Given: No Immunizations Up to Date: Yes Travel Risk - International Travel Have you traveled outside of the country in past 3 weeks: No - Coronavirus Screening Are you exhibiting any of the following symptoms?: No Close contact with a COVID-19 positive Pt in past 14-21 Days: No - Vaccine Status Have you recieved a Covid-19 vaccination: No - Review of Systems Constitutional: No Symptoms, No Fever, No Chills Eyes: No Symptoms Ears, Nose, & Throat: No Symptoms Respiratory: No Symptoms, No Cough, No Dyspnea Cardiac: No Symptoms, No Chest Pain, No Edema, No Syncope Abdominal/Gastrointestinal: No Symptoms, No Abdominal Pain, No Nausea, No Vomiting, No Diarrhea Genitourinary Symptoms: No Symptoms, No Dysuria Musculoskeletal: No Symptoms, No Back Pain, No Neck Pain Skin: No Symptoms, No Rash Neurological: No Symptoms, No Dizziness, No Focal Weakness, No Sensory Changes Psychological: No Symptoms Endocrine: No Symptoms Hematologic/Lymphatic: No Symptoms Immunological/Allergic: No Symptoms All Other Systems: Reviewed and Negative - Past Medical History Pertinent Past Medical History: Yes Neurological History: No Pertinent History ENT History: No Pertinent History Cardiac History: Coronary Artery Disease, Hypertension Respiratory History: Sleep Apnea Endocrine Medical History: Diabetes Type II Musculoskeletal History: No Pertinent History GI Medical History: No Pertinent History History: Other Psycho-Social History: No Pertinent History Male Reproductive Disorders: No Pertinent History Other Medical History: atrial fibm, lung nodules, fatty liver, kidney cyst, kidney stones - Past Surgical History Past Surgical History: Yes Neuro Surgical History: No Pertinent History Cardiac: No Pertinent History, Cardiac Catheterization Respiratory: No Pertinent History Gastrointestinal: Cholecystectomy Genitourinary: No Pertinent History Musculoskeletal: No Pertinent History Male Surgical History: No Pertinent History Other Surgical History: nasal, DEVIATED SEPTUM - Social History Smoking Status: Never smoker Exposure to second hand smoke: No Drug Use: none Patient Lives Alone: No - Nursing Vital Signs Nursing Vital Signs: Initial Vital Signs Temperature 97.9 F 03/25/23 07:33 Pulse Rate 84 03/25/23 07:33 Respiratory Rate 18 03/25/23 07:33 O2 Sat by Pulse Oximetry 97 03/25/23 07:33 Pain Scale Pain Intensity 3 - Physical Exam General Appearance: no apparent distress, alert Eye Exam: PERRL/EOMI, eyes nml inspection Ears, Nose, Throat Exam: normal ENT inspection, TMs normal, pharynx normal, moist mucous membranes Neck Exam: normal inspection, non-tender, supple, full range of motion Respiratory Exam: normal breath sounds, lungs clear, No respiratory distress Cardiovascular Exam: regular rate/rhythm, normal heart sounds, normal peripheral pulses Gastrointestinal/Abdomen Exam: soft, normal bowel sounds, No tenderness, No mass Back Exam: normal inspection, normal range of motion, No CVA tenderness, No vertebral tenderness Extremity Exam: normal inspection, normal range of motion, pelvis stable Neurologic Exam: alert, oriented x 3, cooperative, normal mood/affect, nml cerebellar function, nml station & gait, sensation nml, No motor deficits Skin Exam: normal color, warm, dry, No rash Lymphatic Exam: No adenopathy SpO2 Interpretation: normal SpO2: 95 O2 Delivery: Room Air - Course Nursing assessment & vital signs reviewed: Yes EKG Interpreted by Me: RATE (81), Sinus Rhythm, NORMAL AXIS, Left Bundle Branch Block - Radiology Exams Ribs X-ray Interpretation: Teleradiologist Report (No acute findings. Osteopenia degenerative changes of spine) Chest X-ray Interpretation: Teleradiologist Report (No acute findings, osteopenia degenerative changes of spine) Ordered Tests: Active Orders 24 hr Category Date Time Status Vision Specialist STAT Care 03/25/23 07:56 Active EKG-ER Only STAT Care 03/25/23 07:51 Active IV Insertion STAT Care 03/25/23 07:51 Active Pulse Oximetry (ED) STAT Care 03/25/23 07:51 Active CHEST 1 VIEW (PORTABLE) Stat Exams 03/25/23 09:46 Completed RIBS UNILATERAL Stat Exams 03/25/23 09:46 Completed CBC W DIFF Stat Lab 03/25/23 08:00 Completed CMP Stat Lab 03/25/23 08:00 Completed D-DIMER QUANTITATIVE Stat Lab 03/25/23 08:00 Completed TROPONIN Q4H Lab 03/25/23 08:00 Completed TROPONIN Q4H Lab 03/25/23 11:10 Completed TROPONIN Q4H Lab 03/25/23 16:00 Ordered Lab/Rad Data: Laboratory Result Diagrams 03/25/23 08:00 03/25/23 08:00 Laboratory Results 03/25/23 03/25/23 03/25/23 Range/Units 11:10 08:00 08:00 WBC (4.0-10.5) x10^3/uL RBC (4.1-5.6) x10^6/uL Hgb (12.5-18.0) g/dL Hct (42-50) % MCV (78-100) fL MCH (26-32) pg MCHC (32-36) g/dL RDW (11.5-14.0) % Plt Count (150-450) x10^3/uL MPV (7.5-11.0) fL Gran % (36.0-66.0) % Immature Gran % (Auto) (0.00-0.4) % Nucleat RBC Rel Count (0.00-0.1) % Eos # (Auto) (0-0.5) x10^3/uL Immature Gran # (Auto) (0.00-0.03) x10^3u/L Absolute Lymphs (auto) (1.0-4.6) x10^3/uL Absolute Monos (auto) (0.0-1.3) x10^3/uL Absolute Nucleated RBC (0.00-0.01) x10^3u/L Lymphocytes % (24.0-44.0) % Monocytes % (0.0-12.0) % Eosinophils % (0.00-5.0) % Basophils % (0.0-0.4) % Absolute Granulocytes (1.4-6.9) x10^3/uL Basophils # (0-0.4) x10^3/uL D-Dimer < 0.19 (0.0-0.50) mg/L Sodium (137-145) mmol/L Potassium (3.5-5.1) mmol/L Chloride (98-107) mmol/L Carbon Dioxide (22-30) mmol/L Anion Gap (5-15) MEQ/L BUN (9-20) mg/dL Creatinine (0.66-1.25) mg/dL Estimated GFR ML/MIN Glucose (74-106) mg/dL Calcium (8.4-10.2) mg/dL Total Bilirubin (0.2-1.3) mg/dL AST (17-59) U/L ALT (0-50) U/L Alkaline Phosphatase (38-126) U/L Troponin I < 0.012 < 0.012 (0.000-0.034) ng/mL Serum Total Protein (6.3-8.2) g/dL Albumin (3.5-5.0) g/dL 03/25/23 03/25/23 Range/Units 08:00 08:00 WBC 10.2 (4.0-10.5) x10^3/uL RBC 5.61 H (4.1-5.6) x10^6/uL Hgb 15.6 (12.5-18.0) g/dL Hct 47.3 (42-50) % MCV 84.3 (78-100) fL MCH 27.8 (26-32) pg MCHC 33.0 (32-36) g/dL RDW 13.8 (11.5-14.0) % Plt Count 157 (150-450) x10^3/uL MPV 9.9 (7.5-11.0) fL Gran % 64.2 (36.0-66.0) % Immature Gran % (Auto) 1.1 H (0.00-0.4) % Nucleat RBC Rel Count 0.0 (0.00-0.1) % Eos # (Auto) 0.09 (0-0.5) x10^3/uL Immature Gran # (Auto) 0.11 H (0.00-0.03) x10^3u/L Absolute Lymphs (auto) 2.73 (1.0-4.6) x10^3/uL Absolute Monos (auto) 0.66 (0.0-1.3) x10^3/uL Absolute Nucleated RBC 0.00 (0.00-0.01) x10^3u/L Lymphocytes % 26.7 (24.0-44.0) % Monocytes % 6.5 (0.0-12.0) % Eosinophils % 0.9 (0.00-5.0) % Basophils % 0.6 (0.0-0.4) % Absolute Granulocytes 6.58 (1.4-6.9) x10^3/uL Basophils # 0.06 (0-0.4) x10^3/uL D-Dimer (0.0-0.50) mg/L Sodium 138 (137-145) mmol/L Potassium 4.1 (3.5-5.1) mmol/L Chloride 102 (98-107) mmol/L Carbon Dioxide 25 (22-30) mmol/L Anion Gap 15.1 H (5-15) MEQ/L BUN 13 (9-20) mg/dL Creatinine 0.59 L (0.66-1.25) mg/dL Estimated GFR 119.7 ML/MIN Glucose 167 H (74-106) mg/dL Calcium 9.2 (8.4-10.2) mg/dL Total Bilirubin 0.40 (0.2-1.3) mg/dL AST 42 (17-59) U/L ALT 65 H (0-50) U/L Alkaline Phosphatase 89 (38-126) U/L Troponin I (0.000-0.034) ng/mL Serum Total Protein 7.5 (6.3-8.2) g/dL Albumin 4.4 (3.5-5.0) g/dL - Progress Progress: improved Progress Note: Patient a 47-year-old male presents to our ED with left-sided rib pain. EKG shows no acute findings. D-dimer negative. Troponin negative x2. Patient has no active chest pain upon arrival or at time of discharge. Chest x-ray and rib x-ray negative for acute pathology. Both show osteopenia and chronic joint degenerative changes of the spine. CBC CMP essentially nonremarkable. Patient reassessed. He is pain-free at this time. No indication for further work-up at this time. Will discharge home. Patient agrees to follow-up with his primary care doctor within 48 hours for reevaluation. Patient's heart score is 3 Portions of this note were created with voice recognition technology. There may be grammatical, spelling, punctuation or sound alike errors Complexity of problem addressed is moderate acute complicated Critical care time Complexity of data reviewed and analyzed is moderate. Test ordered test reviewed. Results analyzed and correlated clinically. Dr. Sainz independently reviewed the EKG as well as old EKG. Labs and apparently reviewed by Dr. Sainz. Risk complication and or risk morbidity/mortality of patient management is low. Vital stable. Time spent to discharge patient is approximately 10 to 15 minutes. Plan of care established for shared decision making. No social determinants of health present Sapyta follow-up. Portions of this note were created with voice recognition technology. There may be grammatical, spelling, punctuation or sound alike errors 03/25/23 12:21 Counseled pt/family regarding: lab results, diagnosis, need for follow-up, rad results - Departure Departure Disposition: Home Clinical Impression: Osteopenia, Degenerative changes of spine, Rib pain on left side Condition: Stable Critical Care Time: No Referrals: TREVOR LY, [employer] [Primary Care Provider] - Follow up/PCP as directed Additional Instructions: Discharge/Care Plan FAZAL RIBEIRO KWAME was seen on 03/25/23 in the Emergency Room. The patient was counseled regarding Diagnosis,Lab results, Imaging studies, need for follow up and when to return to the Emergency Room. Prescriptions given: Discharge Note I have spoken with the patient and/or caregivers. I have explained the patient's condition, diagnosis and treatment plan based on the information available to me at this time. I have answered the patient's and/or caregiver's questions and addressed any concerns. The patient and/or caregivers have as good understanding of the patient's diagnosis, condition and treatment plan as can be expected at this point. The vital signs have been stable. The patient's condition is stable and appropriate for discharge from the emergency department. The patient will pursue further outpatient evaluation with the primary care p jhon or other designated or consulting physician as outlined in the discharge instructions. The patient and/or caregivers are agreeable to this plan of care and follow-up instructions have been explained in detail. The patient and/or caregivers have received these instruction. The patient/and or caregivers are aware that any significant change in condition or worsening of symptoms should prompt an immediate return to this or the closest emergency department or call 911.
[2023-03-25 08:08] LABS: Absolute Neutrophil Ct (ANC) 6.58 x10^3/uL (1.4-6.9); BASOPHIL % 0.6 % (0.0-0.4); Basophil (Absolute #) 0.06 x10^3/uL (0-0.4); Eosinophil % 0.9 % (0.00-5.0); Eosinophil (Absolute #) 0.09 x10^3/uL (0-0.5); Hematocrit 47.3 % (42-50); Hemoglobin 15.6 g/dL (12.5-18.0); IMMATURE GRAN # 0.11 x10^3u/L (0.00-0.03); IMMATURE GRAN % 1.1 % (0.00-0.4); Lymphocyte (Absolute #) 2.73 x10^3/uL (1.0-4.6); Lymphocytes % 26.7 % (24.0-44.0); Mean Cell Volume 84.3 fL (78-100); Mean Corpuscular Hemoglobin 27.8 pg (26-32); Mean Platelet Volume 9.9 fL (7.5-11.0); Monocyte (Absolute #) 0.66 x10^3/uL (0.0-1.3); Monocytes % 6.5 % (0.0-12.0); Neutrophil % 64.2 % (36.0-66.0); Platelet Count 157 x10^3/uL (150-450); Red Blood Count 5.61 x10^6/uL (4.1-5.6); Red Cell Distribution Width 13.8 % (11.5-14.0); White Blood Count 10.2 x10^3/uL (4.0-10.5)
[2023-03-25 08:23] LABS: ALBUMIN 4.4 g/dL (3.5-5.0); BILIRUBIN,TOTAL 0.4 mg/dL (0.2-1.3); Calcium 9.2 mg/dL (8.4-10.2); Creatinine 1 0.59 mg/dL (0.66-1.25); EST GLOMERULAR FILTRATION RATE 119.7 ML/MIN; Total Protein 7.5 g/dL (6.3-8.2)
[2023-03-25 08:25] LABS: Potassium 4.1 mmol/L (3.5-5.1)
[2023-03-25 08:30] LABS: ANION GAP 15.1 MEQ/L (5-15)
--- NOTE | 2023-03-25 10:37 | XRAY ---
Indication: Pain. No known injury. Impression: None 2 view left ribs demonstrate osteopenia and mild degenerative changes throughout the spine. No other bony, articular, or soft tissue abnormalities visualized.
--- NOTE | 2023-03-25 10:39 | XRAY ---
Indication: Left chest pain. No known injury. Comparison: August 28, 2018 Single PA chest inflated and remains clear. Heart not enlarged. Bony thorax intact again with osteopenia and mild degenerative changes. No new/acute findings.
[2023-03-25 11:21] VITALS: O2SAT 95
[2023-03-25 12:09] VITALS: BP 99/60; PULSE 71; RESP 15
== END 2023-03-25 12:28 | disposition home or self-care (01) ==
LOC: ED 07:24
DX: M85.88 Other specified disorders of bone density and structure, other site (principal); M47.9 Spondylosis, unspecified; R07.81 Pleurodynia; I10 Essential (primary) hypertension; E11.9 Type 2 diabetes mellitus without complications; Z79.85 Long-term (current) use of injectable non-insulin antidiabetic drugs; Z79.84 Long term (current) use of oral hypoglycemic drugs; Z79.899 Other long term (current) drug therapy; Z28.310 Unvaccinated for COVID-19
CPT/HCPCS: 36415; 71045; 71100; 80053; 84484; 85025; 85379; 93005; 93041; 94760; 99284

== ENCOUNTER 2023-03-27 19:05 | Emergency (ER) | payer BC ==
--- NOTE | 2023-03-27 19:29 | ERPHSYRPT ---
- History of Present Illness Time Seen by Provider: 03/27/23 19:28 Source: patient Exam Limitations: no limitations Patient Subjective Stated Complaint: pt states that he began to get more short of breath today. pt states that this is a continuation from a couple days ago Triage Nursing Assessment: pt ambulated into the er; pt is axo x4; c/o SOB; pt states 9/10 pain to left lower ribs; no visible respiratory distress present; pt states SOB; LLL friction rub; all other lobes clear; no cough present at time of assessement; afebrile; skin PDW; vital wnl Physician History: This is a 47-year-old white male patient who was seen here on 03/25/2023 because of left rib pain. Full workup was performed. There were 2 troponin levels which are negative, D-dimer level that was negative, there were no acute findings on twelve-lead EKG. There were no acute findings on the rib x-rays or on the chest x-ray. Both these films were interpreted by the radiologist. Patient was feeling pretty good yesterday and then today, early afternoon he started getting the left lateral rib pain again with associated shortness of breath because he could not take a deep breath in. He has never had anything like this before. He does now recall a few days ago he was at his primary care provider's office and was told to bend over forward and he felt a popping in the left upper quadrant. Patient has had no nausea vomiting or diarrhea symptoms. He has no chest pain. Patient has a history of hypertension, diabetes, hyperlipidemia. He had a cardiac catheterization in the past. He is a non- smoker. Patient does not recall any fall or acute trauma to this area. His rib pain level on the left side is 9 out of 10. Timing/Duration: day(s) (Symptoms began a few days ago), worse Severity of Dyspnea-Max: mild Severity of Dyspnea-Current: mild Possible Cause: no prior episodes (But seen here 2 days ago for the same thing. Prior to that no episodes like this.) Associated Symptoms: chest pain/discomfort (Not anterior chest pain but left lateral rib pain), No cough, No loss of appetite, No calf pain Allergies/Adverse Reactions: No Known Drug Allergies Allergy (Verified 03/27/23 19:06) Home Medications: Lisinopril 10 mg [Zestril 10 MG] 20 mg PO HS 01/02/17 [History] Nebivolol HCl [Bystolic] 10 mg PO HS 01/02/17 [History] Verapamil HCl Sr [Isoptin Sr] 180 mg PO DAILY 01/02/17 [History] Escitalopram Oxalate [Lexapro] 20 mg PO DAILY 10/29/17 [History] Fluticasone Propionate [Flonase Nasal] 16 gm NS HS PRN 10/29/17 [History] Hydrochlorothiazide 25 mg [hydroDIURIL 25 MG] 1 tab PO DAILY 12/01/18 [History] Aspirin EC 81 mg [Ecotrin 81 mg] 81 mg PO DAILY 11/07/22 [History] Cholestyramine Light 4 gm [QUESTRAN Light 4 GM Packet] 3 packet PO UD 11/07/22 [History] Dapagliflozin Propanediol [Farxiga] 10 mg PO UD 11/07/22 [History] Semaglutide [Ozempic] 1 syringe SQ WEEKLY 11/07/22 [History] Glimepiride 3 mg PO DAILY 12/02/22 [History] Rosuvastatin Calcium 40 mg PO DAILY 12/02/22 [History] Hx Tetanus, Diphtheria Vaccination/Date Given: Yes Hx Influenza Vaccination/Date Given: Yes Hx Pneumococcal Vaccination/Date Given: No Travel Risk - International Travel Have you traveled outside of the country in past 3 weeks: No - Coronavirus Screening Are you exhibiting any of the following symptoms?: No Close contact with a COVID-19 positive Pt in past 14-21 Days: No - Vaccine Status Have you recieved a Covid-19 vaccination: No - Review of Systems Constitutional: No Symptoms Eyes: No Symptoms Ears, Nose, & Throat: No Symptoms Respiratory: No Symptoms Cardiac: No Symptoms Abdominal/Gastrointestinal: No Symptoms Genitourinary Symptoms: No Symptoms Musculoskeletal: Other (Left lateral rib pain) Skin: No Symptoms Neurological: No Symptoms Psychological: No Symptoms Endocrine: No Symptoms Hematologic/Lymphatic: No Symptoms Immunological/Allergic: No Symptoms All Other Systems: Reviewed and Negative - Past Medical History Pertinent Past Medical History: Yes Neurological History: No Pertinent History ENT History: No Pertinent History Cardiac History: Coronary Artery Disease, Hypertension Respiratory History: Sleep Apnea Endocrine Medical History: Diabetes Type II Musculoskeletal History: No Pertinent History GI Medical History: No Pertinent History History: Other Psycho-Social History: No Pertinent History Male Reproductive Disorders: No Pertinent History Other Medical History: atrial fibm, lung nodules, fatty liver, kidney cyst, kidney stones - Past Surgical History Past Surgical History: Yes Neuro Surgical History: No Pertinent History Cardiac: No Pertinent History, Cardiac Catheterization Respiratory: No Pertinent History Gastrointestinal: Cholecystectomy Genitourinary: No Pertinent History Musculoskeletal: No Pertinent History Male Surgical History: No Pertinent History Other Surgical History: nasal, DEVIATED SEPTUM - Social History Smoking Status: Never smoker Exposure to second hand smoke: No Drug Use: none Patient Lives Alone: No - Nursing Vital Signs Nursing Vital Signs: Initial Vital Signs Pulse Rate 76 03/27/23 19:06 Respiratory Rate 20 03/27/23 19:06 Blood Pressure 136/87 03/27/23 19:06 O2 Sat by Pulse Oximetry 96 03/27/23 19:06 Pain Scale Pain Intensity 8 - Physical Exam General Appearance: no apparent distress, alert, anxiety Eye Exam: PERRL/EOMI, eyes nml inspection Ears, Nose, Throat Exam: hearing grossly normal, normal ENT inspection Neck Exam: normal inspection, non-tender, supple, full range of motion Respiratory Exam: normal breath sounds, lungs clear, airway intact, No chest tenderness, No respiratory distress Cardiovascular/Chest Exam: normal heart sounds, regular rate/rhythm, other (Left lateral rib pain to palpation) Abdominal/Gastrointestinal Exam: soft, normal bowel sounds, No tenderness, No guarding Rectal Exam: not done Extremity Exam: non-tender, normal range of motion, normal inspection Neurologic Exam: alert, oriented x 3, cooperative, mechanical designer II-XII nml as tested, normal mood/affect, nml cerebellar function, nml station & gait, sensation nml Skin Exam: normal color, warm, dry Lymphatic Exam: No adenopathy SpO2 Interpretation: normal SpO2: 96 O2 Delivery: Room Air - Course Nursing assessment & vital signs reviewed: Yes EKG Interpreted by Me: RATE (72), Sinus Rhythm, NORMAL AXIS, Left Bundle Branch Block, NORMAL ST-T, Other (Prolonged [place] interval. No evidence of any acute ischemic changes on today's twelve-lead EKG.) Ordered Tests: Active Orders 24 hr Category Date Time Status Electrician [employer] STAT Care 03/27/23 19:30 Active EKG-ER Only STAT Care 03/27/23 19:29 Active IV Insertion STAT Care 03/27/23 19:29 Active Pulse Oximetry (ED) STAT Care 03/27/23 19:29 Active ABDOMEN AND PELVIS W/0 CONTRAS [CT] Stat Exams 03/27/23 21:18 Completed CHEST WITH CONTRAST [CT] Stat Exams 03/27/23 21:21 Completed CBC W DIFF Stat Lab 03/27/23 19:32 Completed CMP Stat Lab 03/27/23 19:32 Completed D-DIMER QUANTITATIVE Stat Lab 03/27/23 19:32 Completed PROTIME WITH INR Stat Lab 03/27/23 19:32 Completed TROPONIN Q4H Lab 03/27/23 19:32 Completed TROPONIN Q4H Lab 03/27/23 23:30 Ordered TROPONIN Q4H Lab 03/28/23 03:30 Ordered Medication Summary Generic Name Dose Route Start Last Admin Trade Name Freq PRN Reason Stop Dose Admin Sodium Chloride 1,000 mls @ 100 mls/hr 03/27/23 19:30 03/27/23 19:55 Sodium Chloride 0.9% 1000 Ml IV 04/26/23 19:29 100 mls/hr .Q10H ANTON Administration Ceftriaxone Sodium/Dextrose 1 g in 50 mls @ 100 mls/hr 03/27/23 22:41 03/27/23 22:47 Rocephin 1 Gm-D5w 50 Ml Bag IV 03/27/23 23:10 100 mls/hr STAT STA 100 mls/hr Administration Discontinued Medications Generic Name Dose Route Start Last Admin Trade Name Freq PRN Reason Stop Dose Admin Methylprednisolone Sodium 0 mg 03/27/23 22:41 03/27/23 22:46 Succinate 125 mg/ Sterile IV 03/27/23 22:42 125 mg Water 2 ml STAT ONE Administration Hydromorphone HCl 1 mg 03/27/23 19:32 03/27/23 19:55 Hydromorphone 1 Mg/1ml Inj IV 03/27/23 19:33 1 mg STAT ONE Administration Hydromorphone HCl Confirm 03/27/23 19:53 Hydromorphone 1 Mg/1ml Inj Administered 03/27/23 19:54 Dose 1 mg .ROUTE .STK-MED ONE Ceftriaxone Sodium/Dextrose Confirm 03/27/23 22:46 Rocephin 1 Gm-D5w 50 Ml Bag Administered 03/27/23 22:47 Dose 1 g in 50 mls @ ud IV .STK-MED ONE Lorazepam 0.5 mg 03/27/23 20:39 03/27/23 20:45 Lorazepam 2 Mg/1 Ml 2 Mg Vial IV 03/27/23 20:40 0.5 mg STAT ONE Administration Lorazepam Confirm 03/27/23 20:44 Lorazepam 2 Mg/1 Ml 2 Mg Vial Administered 03/27/23 20:45 Dose 2 mg .ROUTE .STK-MED ONE Methylprednisolone Sodium Succinate Confirm 03/27/23 22:46 Methylprednis Sod Succ 125 Mg/2 Ml Vial Administered 03/27/23 22:47 Dose 125 mg .ROUTE .STK-MED ONE Ondansetron HCl 4 mg 03/27/23 19:32 03/27/23 19:55 Ondansetron Hcl 4 Mg/2 Ml Vial IV 03/27/23 19:33 4 mg STAT ONE Administration Ondansetron HCl Confirm 03/27/23 19:53 Ondansetron Hcl 4 Mg/2 Ml Vial Administered 03/27/23 19:54 Dose 4 mg .ROUTE .STK-MED ONE Orphenadrine Citrate 60 mg 03/27/23 22:12 03/27/23 22:18 Orphenadrine Citrate 60 Mg/2 Ml Vial IV 03/27/23 22:13 60 mg STAT ONE Administration Orphenadrine Citrate Confirm 03/27/23 22:17 Orphenadrine Citrate 60 Mg/2 Ml Vial Administered 03/27/23 22:18 Dose 60 mg .ROUTE .STK-MED ONE Sterile Water Confirm 03/27/23 22:46 Water For Injection,Sterile 10 Ml Vial Administered 03/27/23 22:47 Dose 10 ml IJ .STK-MED ONE Lab/Rad Data: Laboratory Result Diagrams 03/27/23 19:32 03/27/23 19:32 Laboratory Results 03/27/23 03/27/23 03/27/23 Range/Units 19:32 19:32 19:32 WBC (4.0-10.5) x10^3/uL RBC (4.1-5.6) x10^6/uL Hgb (12.5-18.0) g/dL Hct (42-50) % MCV (78-100) fL MCH (26-32) pg MCHC (32-36) g/dL RDW (11.5-14.0) % Plt Count (150-450) x10^3/uL MPV (7.5-11.0) fL Gran % (36.0-66.0) % Immature Gran % (Auto) (0.00-0.4) % Nucleat RBC Rel Count (0.00-0.1) % Eos # (Auto) (0-0.5) x10^3/uL Immature Gran # (Auto) (0.00-0.03) x10^3u/L Absolute Lymphs (auto) (1.0-4.6) x10^3/uL Absolute Monos (auto) (0.0-1.3) x10^3/uL Absolute Nucleated RBC (0.00-0.01) x10^3u/L Lymphocytes % (24.0-44.0) % Monocytes % (0.0-12.0) % Eosinophils % (0.00-5.0) % Basophils % (0.0-0.4) % Absolute Granulocytes (1.4-6.9) x10^3/uL Basophils # (0-0.4) x10^3/uL PT 10.9 (9.4-12.5) SECONDS INR 1.00 (0.8-3.0) D-Dimer < 0.19 (0.0-0.50) mg/L Sodium 140 (137-145) mmol/L Potassium 3.5 (3.5-5.1) mmol/L Chloride 101 (98-107) mmol/L Carbon Dioxide 28 (22-30) mmol/L Anion Gap 14.1 (5-15) MEQ/L BUN 14 (9-20) mg/dL Creatinine 0.70 (0.66-1.25) mg/dL Estimated GFR 113.7 ML/MIN Glucose 139 H (74-106) mg/dL Calcium 9.5 (8.4-10.2) mg/dL Total Bilirubin 0.30 (0.2-1.3) mg/dL AST 45 (17-59) U/L ALT 75 H (0-50) U/L Alkaline Phosphatase 94 (38-126) U/L Troponin I < 0.012 (0.000-0.034) ng/mL Serum Total Protein 7.5 (6.3-8.2) g/dL Albumin 4.5 (3.5-5.0) g/dL 03/27/23 Range/Units 19:32 WBC 9.8 (4.0-10.5) x10^3/uL RBC 5.64 H (4.1-5.6) x10^6/uL Hgb 15.6 (12.5-18.0) g/dL Hct 48.0 (42-50) % MCV 85.1 (78-100) fL MCH 27.7 (26-32) pg MCHC 32.5 (32-36) g/dL RDW 14.0 (11.5-14.0) % Plt Count 179 (150-450) x10^3/uL MPV 10.1 (7.5-11.0) fL Gran % 47.0 (36.0-66.0) % Immature Gran % (Auto) 1.1 H (0.00-0.4) % Nucleat RBC Rel Count 0.0 (0.00-0.1) % Eos # (Auto) 0.12 (0-0.5) x10^3/uL Immature Gran # (Auto) 0.11 H (0.00-0.03) x10^3u/L Absolute Lymphs (auto) 4.19 (1.0-4.6) x10^3/uL Absolute Monos (auto) 0.70 (0.0-1.3) x10^3/uL Absolute Nucleated RBC 0.00 (0.00-0.01) x10^3u/L Lymphocytes % 42.9 (24.0-44.0) % Monocytes % 7.2 (0.0-12.0) % Eosinophils % 1.2 (0.00-5.0) % Basophils % 0.6 (0.0-0.4) % Absolute Granulocytes 4.59 (1.4-6.9) x10^3/uL Basophils # 0.06 (0-0.4) x10^3/uL PT (9.4-12.5) SECONDS INR (0.8-3.0) D-Dimer (0.0-0.50) mg/L Sodium (137-145) mmol/L Potassium (3.5-5.1) mmol/L Chloride (98-107) mmol/L Carbon Dioxide (22-30) mmol/L Anion Gap (5-15) MEQ/L BUN (9-20) mg/dL Creatinine (0.66-1.25) mg/dL Estimated GFR ML/MIN Glucose (74-106) mg/dL Calcium (8.4-10.2) mg/dL Total Bilirubin (0.2-1.3) mg/dL AST (17-59) U/L ALT (0-50) U/L Alkaline Phosphatase (38-126) U/L Troponin I (0.000-0.034) ng/mL Serum Total Protein (6.3-8.2) g/dL Albumin (3.5-5.0) g/dL - Progress Progress: improved, re-examined Air Movement: good Progress Note: 03/27/23 19:59 This patient's medical issue is 1 of moderate complexity. Level complexity in the workup performed is based on review the patient's past medical history, review of the patient's medication list, review of the patient's drug allergy list, history of present illness and physical findings on examination. The workup in this patient includes placement of the intravenous line, twelve-lead EKG, troponin level, D-dimer level, CBC, CMP. Depending on the results of the D-dimer, we will perform either a CT scan of the chest with or without contrast as well as a CT scan of the abdomen pelvis. 03/27/23 22:37 I interpreted the patient's laboratory data results. There is no evidence of any acute or emergent findings on the laboratory data. CT scan of the chest with contrast was interpreted by the radiologist and there is no evidence of a filling defect or pulmonary embolus. There is basal atelectatic changes in the posterior aspect of the left lower lobe with subpleural haziness and 4 mm calcified nodule with suspicious traces of left sided pleural effusion. 03/27/23 22:59 CT scan of the abdomen pelvis without contrast shows hepatomegaly. There is right renal cortical cysts. There is patchy airspace opacification along the left basal lung with focal pleural thickening. Might represent acute infectious changes. There is uncomplicated diverticulosis. There is no mention of abdominal aortic aneurysm. Blood Culture(s) Obtained: No Antibiotics given: Yes Counseled pt/family regarding: lab results, diagnosis, need for follow-up, rad results Medical Desision Making - Independent Historian Additional History obtained from: Family - Diagnostic Testing Diagnostic test were ordered, analyzed, and reviewed by me: Yes Radiological Interpretation: Reviewed by me, Teleradiologist Report - Risk of complications The pt has a mod risk of morbidity or mortality based on: Need for prescription drug management - Departure Departure Disposition: Home Clinical Impression: Left lower lobe pulmonary infiltrate, Pleural effusion on left, Diverticulosis, Renal cyst Condition: Stable Critical Care Time: No Referrals: [employer] SUBMAR[employer] ELEMENT COORDINATOR [Primary Care Provider] - Follow up/PCP as directed Additional Instructions: Drink plenty of fluids. Take your medication as prescribed. Call your primary care physician tomorrow, 03/28/2023, to make arranges for follow-up appointment and further management including pain control. Prescriptions: Prednisone 10 mg [Deltasone 10 mg] 10 mg PO TID #12 tablet Hydrocodone/Acetaminophen [Hydrocodone-Acetamn 7.5-325/15] 10 ml PO Q8H PRN #120 ml MDD 30 ml PRN Reason: Cough Azithromycin 250 mg [Zithromax 250 MG TABLET] 250 mg PO ZPACK #6 tablet
[2023-03-27] MEDS ORDERED: Sodium Chloride 0.9% 1000 ML 1,000 ML IV SCH (19:30)
[2023-03-27] MEDS ORDERED: Zofran 4 MG/2 ML VIAL IV ONE (19:32)
[2023-03-27] MEDS ORDERED: Hydromorphone 1 mg/ml Injection IV ONE (19:32)
[2023-03-27 19:38] LABS: Absolute Neutrophil Ct (ANC) 4.59 x10^3/uL (1.4-6.9); BASOPHIL % 0.6 % (0.0-0.4); Basophil (Absolute #) 0.06 x10^3/uL (0-0.4); Eosinophil % 1.2 % (0.00-5.0); Eosinophil (Absolute #) 0.12 x10^3/uL (0-0.5); Hemoglobin 15.6 g/dL (12.5-18.0); IMMATURE GRAN # 0.11 x10^3u/L (0.00-0.03); IMMATURE GRAN % 1.1 % (0.00-0.4); Lymphocyte (Absolute #) 4.19 x10^3/uL (1.0-4.6); Lymphocytes % 42.9 % (24.0-44.0); Mean Cell Volume 85.1 fL (78-100); Mean Corpuscular Hemoglobin 27.7 pg (26-32); Mean Corpuscular Hgb Concent. 32.5 g/dL (32-36); Mean Platelet Volume 10.1 fL (7.5-11.0); Monocytes % 7.2 % (0.0-12.0); Platelet Count 179 x10^3/uL (150-450); Red Blood Count 5.64 x10^6/uL (4.1-5.6); White Blood Count 9.8 x10^3/uL (4.0-10.5)
[2023-03-27 19:49] LABS: D-DIMER QUANTITATIVE < 0.19 mg/L (0.0-0.50); PROTIME 10.9 SECONDS (9.4-12.5)
[2023-03-27] MEDS ORDERED: Sodium Chloride 0.9% 1000 ML 1,000 ML ONE (19:53)
[2023-03-27] MEDS ORDERED: Hydromorphone 1 mg/ml Injection ONE (19:53)
[2023-03-27] MEDS ORDERED: Zofran 4 MG/2 ML VIAL ONE (19:53)
[2023-03-27 20:01] LABS: ALBUMIN 4.5 g/dL (3.5-5.0); ANION GAP 14.1 MEQ/L (5-15); BILIRUBIN,TOTAL 0.3 mg/dL (0.2-1.3); Calcium 9.5 mg/dL (8.4-10.2); Creatinine 1 0.7 mg/dL (0.66-1.25); EST GLOMERULAR FILTRATION RATE 113.7 ML/MIN; Potassium 3.5 mmol/L (3.5-5.1); Total Protein 7.5 g/dL (6.3-8.2)
[2023-03-27] MEDS ORDERED: Ativan 2 MG/1 ML VIAL IV ONE (20:39)
[2023-03-27] MEDS ORDERED: Ativan 2 MG/1 ML VIAL ONE (20:44)
[2023-03-27] MEDS ORDERED: Norflex 60 MG/2 ML IV ONE (22:12)
[2023-03-27] MEDS ORDERED: Norflex 60 MG/2 ML ONE (22:17)
--- NOTE | 2023-03-27 22:34 | XRAY ---
CLINICAL HISTORY:Shortness of breath, severe left lower rib pain. COMPARISON:None. TECHNIQUES:Contiguous axial CT images of the chest were acquired with intravenous contrast administration following PE protocol. Coronal and sagittal reconstructions were also obtained. FINDINGS: Basal atelectatic changes are noted in posterior aspect of left lower lobe with subpleural haziness and 4 mm calcified nodule with suspicious traces of left sided pleural effusion. Minimal subpleural atelectatic bands noted in posterobasal segment of right lower lobe. Few small 2mm nodules noted in bilateral lung raines, mainly in subpleural aspect. Limited evaluation of the pulmonary arterial system, visualized pulmonary vasculature shows no obvious filling defect. No definite consolidative lesions. No free or encysted pleural effusion. Heart size is normal, and there is no pericardial effusion. No pathologically enlarged mediastinal, hilar or axillary lymph node identified. The thoracic spine shows early degenerative changes. There is no definite mass lesion in the chest wall. Scanned upper abdomen shows bilateral renal cortical cysts. IMPRESSION: Limited evaluation of the pulmonary arterial system, visualized pulmonary vasculature shows no obvious filling defect. Basal atelectatic changes in posterior aspect of left lower lobe with subpleural haziness and 4 mm calcified nodule with suspicious traces of left sided pleural effusion. Minimal subpleural atelectatic bands in posterobasal segment of right lower lobe. Few small 2mm nodules in bilateral lung raines, mainly in subpleural aspect, low risk as per Fleischner Society guidelines. Electronically Signed by: Su Fallon MD. (03/27/2023 21:28:25 RELIGIOUS EDUCATION TEACHER)
[2023-03-27] MEDS ORDERED: solu-MEDROL 125 MG, Sterile H2O 10 ml 2 ML IV ONE ×2 (22:41)
[2023-03-27] MEDS ORDERED: ROCEPHIN 1 Gm-D5w 50 ml Bag** 1 G/50 ML IVPB IV STA (22:41)
[2023-03-27] MEDS ORDERED: Sterile H2O 10 ml IJ ONE (22:46)
[2023-03-27] MEDS ORDERED: solu-MEDROL ONE (22:46)
[2023-03-27] MEDS ORDERED: ROCEPHIN 1 Gm-D5w 50 ml Bag** 1 G/50 ML IVPB IV ONE (22:46)
--- NOTE | 2023-03-27 22:50 | XRAY ---
CLINICAL HISTORY:Left upper quadrant abdominal pain. COMPARISON:None. TECHNIQUES:CT scan of the abdomen and pelvis was performed without IV contrast. Coronal and sagittal reconstructions were also obtained. FINDINGS: Liver is enlarged measuring 24.0 cm with diffuse hepatic steatosis. It has regular margins. No hepatic mass is identified. The portal vein, intrahepatic biliary radicals and the bile ducts are normal. Gall bladder is surgically absent. Common bile duct appears normal. Pancreas appears normal. No peripancreatic fat stranding, pancreatic pseudocyst or peripancreatic fluid collection. Spleen normal in size, no mass seen. Both adrenal glands are unremarkable. Both kidneys are normal in size, shape, and orientation. Right kidney shows two cortical cysts with calcified roger, the one at upper pole measures 22 x 21 mm with a 3 mm calcific plaque and athe one at midpole measures 31 x 29 mm with a 12 mm calcific plaque. No mass or hydronephrosis seen on either side. Both ureters and urinary bladder appear normal. Stomach and small bowel loops are unremarkable. Caecum and ileocecal junction appear normal. Mutlipe diverticulae are seen in large bowel loops without complications, no evidence of bowel obstruction. Sigmoid and rectum appear normal. Pelvic viscera show normal morphology. No evidence of significant enlargement of the mesenteric or retroperitoneal lymph nodes. Mild scoliotic deformity is noted with convexity to right. Visualized thoracic and lumbar spine show extensive degenerative changes. No lytic or sclerotic bone lesions in visualized bones. Patcy air space opacification is noted along left basal lung. Focal pleural thickening is also identifeid. A small 5 mm calcified plaque is noted along this focal pleural thickening. No pleural or pericardial effusion seen. IMPRESSION: Hepatomegaly with diffuse hepatic steatosis. Right renal cortical cysts with calcified roger, the one at upper pole measures 22 x 21 mm with a 3 mm calcific plaque and the one at midpole measures 31 x 29 mm with a 12 mm calcific plaque. Patchy air space opacification along left basal lung with focal pleural thickening and a small 5 mm calcified plaque. It might represent acute infectious changes, however, CT chest for detailed evaluation has already been done. Uncomplicated diverticulosis. Electronically Signed by: Su Fallon MD. (03/27/2023 21:45:34 TRADESHOW WORKER.)
[2023-03-27] MEDS ORDERED: HYDROCODONE-ACETAMIN 2.5-108/5 ML SOLUTION PO STA (23:05)
[2023-03-27 23:07] VITALS: RESP 10
[2023-03-27] MEDS ORDERED: HYDROCODONE-ACETAMIN 2.5-108/5 ML SOLUTION ONE (23:08)
[2023-03-27 23:43] VITALS: BP 129/92; PULSE 77; O2SAT 93
== END 2023-03-27 23:43 | disposition home or self-care (01) ==
LOC: ED 19:05
DX: R91.8 Other nonspecific abnormal finding of lung field (principal); J90 Pleural effusion, not elsewhere classified; K57.90 Diverticulosis of intestine, part unspecified, without perforation or abscess without bleeding; N28.1 Cyst of kidney, acquired; R07.81 Pleurodynia; R06.02 Shortness of breath; I10 Essential (primary) hypertension; E11.9 Type 2 diabetes mellitus without complications; E78.5 Hyperlipidemia, unspecified; Z79.52 Long term (current) use of systemic steroids; Z79.891 Long term (current) use of opiate analgesic; Z79.85 Long-term (current) use of injectable non-insulin antidiabetic drugs; Z79.84 Long term (current) use of oral hypoglycemic drugs; Z79.899 Other long term (current) drug therapy; Z28.310 Unvaccinated for COVID-19
CPT/HCPCS: 36000; 36415; 71260; 74176; 80053; 84484; 85025; 85379; 85610; 93005; 93041; 94760; 96365; 96374; 96375; 99285; J0696; J1170; J2060; J2360; J2405; J2930; A9270-GY

== ENCOUNTER 2023-06-18 15:08 | Day surgery (SDC) | payer BC ==
[2023-06-18] MEDS ORDERED: Depo-Medrol 40 MG/ML IM ONE (15:09)
[2023-06-18] MEDS ORDERED: BUPIVACAINE 0.5% VIAL IJ ONE (15:09)
[2023-06-18] MEDS ORDERED: XYLOCAINE-MPF 1% 5ML SDV IJ ONE (15:09)
--- NOTE | 2023-06-18 19:00 | XRAY ---
Indication: Right SI joint injection. Intraoperative fluoroscopy provided for 10 seconds. 2 digital spot images submitted for interpretation demonstrates posterior needle tip projecting over the right SI joint. Correlate with intraoperative findings/report.
--- NOTE | 2023-06-19 10:56 | XRAY ---
10 seconds of fluoroscopy was used in surgery for a right sacroiliac joint injection.
== END 2023-06-18 16:35 | disposition home or self-care (01) ==
LOC: SDC-PAIN 15:08
PROVIDERS: ATTEND Psychiatry & Neurology Pain Medicine
DX: M46.1 Sacroiliitis, not elsewhere classified (principal); E11.9 Type 2 diabetes mellitus without complications
CPT/HCPCS: 27096; 72170; 77002; 82947; J1030; Q9966; G0260

== ENCOUNTER 2023-07-23 07:01 | Day surgery (SDC) | payer BC ==
[2023-07-23] MEDS ORDERED: LIDOCAINE HCL 2% 100 MG/5 ML IJ ONE (07:02)
[2023-07-23] MEDS ORDERED: DIPRIVAN 200 MG/20 ML IV ONE (08:35)
[2023-07-23] MEDS ORDERED: Lactated Ringers 1,000 ML IV ONE (10:54)
--- NOTE | 2023-07-23 11:35 | XRAY ---
Indication: Bilateral L4-S1 MBB. Intraoperative fluoroscopy provided for 13 seconds. Single digital spot image submitted for interpretation demonstrates posterior needle tips projecting over the expected left and right L4-S1 nerve roots. Correlate with intraoperative findings/report.
--- NOTE | 2023-07-23 13:08 | XRAY ---
13 seconds of fluoroscopy was used in surgery for a bilateral L4-S1 MBB.
== END 2023-07-23 08:52 | disposition home or self-care (01) ==
LOC: SDC-PAIN 07:01
PROVIDERS: ATTEND Psychiatry & Neurology Pain Medicine
DX: M47.816 Spondylosis without myelopathy or radiculopathy, lumbar region (principal); E11.9 Type 2 diabetes mellitus without complications
CPT/HCPCS: 64493; 64494; 72020; 77002; 82947; J2704

== ENCOUNTER 2023-10-24 08:23 | Emergency (ER) | payer BC ==
[2023-10-24 08:43] VITALS: TEMP 98
--- NOTE | 2023-10-24 08:48 | ERPHSYRPT ---
- History of Present Illness Historian: patient Exam Limitations: no limitations Patient Subjective Stated Complaint: C/O right lower abdominal pain that started approx 24 hours ago and is getting increasingly worse. Triage Nursing Assessment: Patient ambulated back to ER without difficulties. NO SOB. Skin tone normal. CHAPPELL WNL. Patient is alert and oriented. Physician History: 48-year-old male with right lower quadrant pain x 1 day. Pain is 8 out of 10 and described as burning and sharp. Bumps on the road made the pain worse on the way to the ER. He has no nausea, no vomiting, no diarrhea, no dysuria, and no hematuria. There is also no fever. He has had a cholecystectomy and kidney stones in the past but states that this pain is different. Timing/Duration: other ( 1 day) Activities at Onset: rest Quality: burning, sharpness Abdominal Pain Onset Location: RLQ Pain Radiation: no radiation Severity of Pain-Max: severe Severity of Pain-Current: severe Modifying Factors: Improves With: movement Associated Symptoms: denies symptoms Previous symptoms: no prior history Allergies/Adverse Reactions: No Known Drug Allergies Allergy (Verified 10/24/23 08:29) Home Medications: Lisinopril 10 mg [Zestril 10 MG] 40 mg PO DAILY 01/02/17 [History] Nebivolol HCl [Bystolic] 10 mg PO HS 01/02/17 [History] Verapamil HCl Sr [Isoptin Sr] 180 mg PO DAILY 01/02/17 [History] Aspirin EC 81 mg [Ecotrin 81 mg] 81 mg PO DAILY 11/07/22 [History] Cholestyramine Light 4 gm [QUESTRAN Light 4 GM Packet] 1 packet PO UD 11/07/22 [History] Semaglutide [Ozempic] 2 mg SQ WEEKLY 11/07/22 [History] Glimepiride 3 mg PO DAILY 12/02/22 [History] Rosuvastatin Calcium 40 mg PO DAILY 12/02/22 [History] Multivitamin 1 tab PO DAILY 10/24/23 [History] Sertraline HCl 50 mg [Zoloft 50 mg Tablet] 100 mg PO DAILY 10/24/23 [ History] Hx Tetanus, Diphtheria Vaccination/Date Given: Yes Hx Influenza Vaccination/Date Given: Yes Hx Pneumococcal Vaccination/Date Given: No Immunizations Up to Date: Yes Travel Risk - International Travel Have you traveled outside of the country in past 3 weeks: No - Emerging Infectious Disease Are you exhibiting symptoms associated with any current EIDs: Yes Symptoms: Abdominal Pain - Review of Systems Constitutional: No Symptoms Eyes: No Symptoms Ears, Nose, & Throat: No Symptoms Respiratory: No Symptoms Cardiac: No Symptoms Genitourinary Symptoms: No Symptoms Musculoskeletal: No Symptoms Skin: No Symptoms Neurological: No Symptoms Psychological: No Symptoms Endocrine: No Symptoms Hematologic/Lymphatic: No Symptoms Immunological/Allergic: No Symptoms - Past Medical History Pertinent Past Medical History: Yes Neurological History: No Pertinent History ENT History: No Pertinent History Cardiac History: Coronary Artery Disease, Hypertension Respiratory History: Sleep Apnea Endocrine Medical History: Diabetes Type II Musculoskeletal History: No Pertinent History GI Medical History: No Pertinent History History: Other Psycho-Social History: No Pertinent History Male Reproductive Disorders: No Pertinent History Other Medical History: atrial fib, lung nodules, fatty liver, kidney cyst, kidney stones. Cardiology: [facility] - Past Surgical History Past Surgical History: Yes Neuro Surgical History: No Pertinent History Cardiac: Cardiac Catheterization Respiratory: No Pertinent History Gastrointestinal: Cholecystectomy Genitourinary: No Pertinent History Musculoskeletal: No Pertinent History Male Surgical History: No Pertinent History Other Surgical History: nasal, DEVIATED SEPTUM - Social History Smoking Status: Never smoker Exposure to second hand smoke: No Drug Use: none Patient Lives Alone: No - Social Determinants of Health Will the patient participate in the screening: Yes Do you worry about a steady place to live?: No Do you have any problems with any of the following?: No known problems In the past 12 months,have you had to go without utilities?: No Transportation Issues: No Has anyone in your support network made you feel unsafe?: No Have you or anyone in your house had to go without enough: No - Nursing Vital Signs Nursing Vital Signs: Initial Vital Signs Temperature 98 F 10/24/23 08:23 Pulse Rate 72 10/24/23 08:23 Respiratory Rate 15 10/24/23 08:23 Blood Pressure 127/80 10/24/23 08:23 O2 Sat by Pulse Oximetry 97 10/24/23 08:23 Pain Scale Pain Intensity 4 Within normal limits - Physical Exam General Appearance: no apparent distress ( patient in pain) Eye Exam: PERRL/EOMI, eyes nml inspection Ears, Nose, Throat Exam: normal ENT inspection, TMs normal, pharynx normal, moist mucous membranes Neck Exam: normal inspection, non-tender, supple, full range of motion, No men ingismus, No mass, No Brudzinski, No Kernig's Respiratory Exam: normal breath sounds, lungs clear, airway intact Cardiovascular Exam: regular rate/rhythm, normal heart sounds, normal peripheral pulses, capillary refill <2 sec, No murmur Gastrointestinal/Abdomen Exam: soft, normal bowel sounds, tenderness ( Moderate severe right lower quadrant tenderness with guarding and rebound) Extremity Exam: normal inspection, normal range of motion Neurologic Exam: alert, oriented x 3, cooperative, 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, normal mood/affect, nml cerebellar function, nml station & gait, sensation nml Skin Exam: normal color, warm, dry Lymphatic Exam: No adenopathy SpO2 Interpretation: normal SpO2: 96 O2 Delivery: Room Air - Course Nursing assessment & vital signs reviewed: Yes EKG Interpreted by Me: RATE (Normal sinus rhythm/rate 65/left bundle branch block/prolonged QTc/compared to 09/16/2023, no change/interpreted contemporaneously per ER physician.) - CT Exams Abdomen/Pelvis CT Interpretation: Tele-radiologist Report (VALLADARES/Normal appendix/Other incidental findings) Ordered Tests: Active Orders 24 hr Category Date Time Status IV Insertion STAT Care 10/24/23 08:43 Completed ABDOMEN AND PELVIS W CONTRAST [CT] Stat Exams 10/24/23 08:44 Completed AMYLASE Stat Lab 10/24/23 08:45 Completed CBC W DIFF Stat Lab 10/24/23 08:45 Completed CBC W DIFF Stat Lab 10/24/23 13:20 Completed CMP Stat Lab 10/24/23 08:45 Completed LIPASE Stat Lab 10/24/23 08:45 Completed Lactic Acid Stat Lab 10/24/23 08:50 Completed TROPONIN Q4H Lab 10/24/23 11:56 Completed TROPONIN Q4H Lab 10/24/23 15:45 Ordered TROPONIN Q4H Lab 10/24/23 19:45 Ordered UA W/RFX UR CULTURE Stat Lab 10/24/23 08:43 Ordered Medication Summary Discontinued Medications Generic Name Dose Route Start Last Admin Trade Name Freq PRN Reason Stop Dose Admin Fentanyl Citrate 50 mcg 10/24/23 08:41 10/24/23 08:56 Fentanyl Citrate 100 Mcg/2 Ml* Vial IV 10/24/23 08:42 50 mcg STAT ONE Administration Fentanyl Citrate Confirm 10/24/23 08:52 Fentanyl Citrate 100 Mcg/2 Ml* Vial Administered 10/24/23 08:53 Dose 100 mcg .ROUTE .STK-MED ONE Hydromorphone HCl 1 mg 10/24/23 10:11 10/24/23 10:19 Hydromorphone 1 Mg/1ml Inj IV 10/24/23 10:12 1 mg STAT ONE Administration Hydromorphone HCl Confirm 10/24/23 10:17 Hydromorphone 1 Mg/1ml Inj Administered 10/24/23 10:18 Dose 1 mg .ROUTE .STK-MED ONE Piperacillin Sod/Tazobactam 100 mls @ 200 mls/hr 10/24/23 08:42 10/24/23 08:55 Sod 3.375 gm/ Sodium Chloride IV 10/24/23 09:11 200 mls/hr STAT ONE Administration Lactated Ringer's 1,000 mls @ 999 mls/hr 10/24/23 08:50 10/24/23 09:59 Lactated Ringers IV 10/24/23 09:50 Infused .Q1H1M ONE Infusion Lactated Ringer's Confirm 10/24/23 08:53 Lactated Ringers Administered 10/24/23 08:54 Dose 1,000 mls @ ud IV .STK-MED ONE Sodium Chloride Confirm 10/24/23 08:54 Sodium Chloride 100ml Mini-Bag Plus Administered 10/24/23 08:55 Dose 100 mls @ ud IV .STK-MED ONE Sodium Chloride 1,000 mls @ 999 mls/hr 10/24/23 12:55 10/24/23 13:16 Sodium Chloride 0.9% 1000 Ml IV 10/24/23 13:55 Not Given .Q1H1M STA Ketorolac Tromethamine 15 mg 10/24/23 13:43 10/24/23 13:46 Ketorolac Tromethamine 30 Mg/Ml Inj IV 10/24/23 13:44 15 mg STAT ONE Administration Ketorolac Tromethamine Confirm 10/24/23 13:45 Ketorolac Tromethamine 30 Mg/Ml Inj Administered 10/24/23 13:46 Dose 30 mg .ROUTE .STK-MED ONE Ondansetron HCl 4 mg 10/24/23 08:42 10/24/23 08:56 Ondansetron Hcl 4 Mg/2 Ml Vial IV 10/24/23 08:43 4 mg STAT ONE Administration Ondansetron HCl Confirm 10/24/23 08:52 Ondansetron Hcl 4 Mg/2 Ml Vial Administered 10/24/23 08:53 Dose 4 mg .ROUTE .STK-MED ONE Piperacillin Sod/Tazobactam Sod Confirm 10/24/23 08:53 Piperacillin/Tazobactam Sodium 3.375 Gm Vial Administered 10/24/23 08:54 Dose 3.375 gm IV .STK-MED ONE Lab/Rad Data: Laboratory Result Diagrams 10/24/23 13:20 10/24/23 08:45 Laboratory Results 10/24/23 10/24/23 10/24/23 Range/Units 13:20 11:56 08:50 WBC 9.1 H (4.23-9.07) x10^3/uL RBC 4.94 (4.63-6.08) x10^6/uL Hgb 14.1 (13.7-17.5) g/dL Hct 42.2 (40.1-51.0) % MCV 85.4 (79.0-92.2) fL MCH 28.5 (25.7-32.2) pg MCHC 33.4 (32.3-36.5) g/dL RDW 13.3 (11.6-14.4) % Plt Count 154 L (163-337) x10^3/uL MPV 10.0 (9.4-12.4) fL Gran % 59.5 (34.0-67.9) % Immature Gran % (Auto) 1.2 H (0.001-0.429) % Nucleat RBC Rel Count 0.0 (0.00-0.2) % Eos # (Auto) 0.11 (0.04-0.54) x10^3/uL Immature Gran # (Auto) 0.11 H (0.001-0.031) x10^3u/L Absolute Lymphs (auto) 2.72 (1.32-3.57) x10^3/uL Absolute Monos (auto) 0.66 (0.30-0.82) x10^3/uL Absolute Nucleated RBC 0.00 (0.00-0.012) x10^3u/L Lymphocytes % 30.0 (21.8-53.1) % Monocytes % 7.3 (5.3-12.2) % Eosinophils % 1.2 (0.8-7.0) % Basophils % 0.8 (0.2-1.2) % Absolute Granulocytes 5.39 H (1.78-5.38) x10^3/uL Basophils # 0.07 (0.01-0.08) x10^3/uL Sodium (135-145) mmol/L Potassium (3.5-5.1) mmol/L Chloride (98-107) mmol/L Carbon Dioxide (22-30) mmol/L Anion Gap (5-15) MEQ/L BUN (9-20) mg/dL Creatinine (0.66-1.25) mg/dL Estimated GFR ML/MIN Glucose (74-106) mg/dL Lactic Acid 2.0 (0.4-2.0) Calcium (8.4-10.2) mg/dL Total Bilirubin (0.2-1.3) mg/dL AST (17-59) U/L ALT (0-50) U/L Alkaline Phosphatase (38-126) U/L Troponin I < 0.012 (0.000-0.033) ng/mL Serum Total Protein (6.3-8.2) g/dL Albumin (3.5-5.0) g/dL Amylase (30-110) U/L Lipase (23-300) U/L 10/24/23 10/24/23 Range/Units 08:45 08:45 WBC 8.5 (4.23-9.07) x10^3/uL RBC 5.10 (4.63-6.08) x10^6/uL Hgb 14.6 (13.7-17.5) g/dL Hct 42.4 (40.1-51.0) % MCV 83.1 (79.0-92.2) fL MCH 28.6 (25.7-32.2) pg MCHC 34.4 (32.3-36.5) g/dL RDW 13.4 (11.6-14.4) % Plt Count 162 L (163-337) x10^3/uL MPV 10.2 (9.4-12.4) fL Gran % 57.8 (34.0-67.9) % Immature Gran % (Auto) 2.7 H (0.001-0.429) % Nucleat RBC Rel Count 0.0 (0.00-0.2) % Eos # (Auto) 0.12 (0.04-0.54) x10^3/uL Immature Gran # (Auto) 0.23 H (0.001-0.031) x10^3u/L Absolute Lymphs (auto) 2.66 (1.32-3.57) x10^3/uL Absolute Monos (auto) 0.55 (0.30-0.82) x10^3/uL Absolute Nucleated RBC 0.00 (0.00-0.012) x10^3u/L Lymphocytes % 31.1 (21.8-53.1) % Monocytes % 6.4 (5.3-12.2) % Eosinophils % 1.4 (0.8-7.0) % Basophils % 0.6 (0.2-1.2) % Absolute Granulocytes 4.93 (1.78-5.38) x10^3/uL Basophils # 0.05 (0.01-0.08) x10^3/uL Sodium 139 (135-145) mmol/L Potassium 4.1 (3.5-5.1) mmol/L Chloride 105 (98-107) mmol/L Carbon Dioxide 22 (22-30) mmol/L Anion Gap 15.1 H (5-15) MEQ/L BUN 11 (9-20) mg/dL Creatinine 0.58 L (0.66-1.25) mg/dL Estimated GFR 119.6 ML/MIN Glucose 156 H (74-106) mg/dL Lactic Acid (0.4-2.0) Calcium 9.6 (8.4-10.2) mg/dL Total Bilirubin 0.60 (0.2-1.3) mg/dL AST 59 (17-59) U/L ALT 64 H (0-50) U/L Alkaline Phosphatase 76 (38-126) U/L Troponin I (0.000-0.033) ng/mL Serum Total Protein 7.5 (6.3-8.2) g/dL Albumin 4.5 (3.5-5.0) g/dL Amylase 78 (30-110) U/L Lipase 97 (23-300) U/L - Progress Progress: improved Progress Note: 10/24/23 14:17 nursing note and vital signs reviewed. No food or housing insecurity noted. All lab results thoroughly reviewed and shared with patient/mother CT of the abdomen pelvis results reviewed and shared with patient/mother. Etiology of patient's abdominal pain unclear at this time as CT the abdomen pelvis with contrast was negative for acute appendicitis or other pathologic disease at this time. Lab work is also nonspecific also. upon ER arrival, patient given 50 mcg IV fentanyl, 4 g IV Zofran, and 3.375 g IV Zosyn. Patient later given 1 milligram IV Dilaudid, 1 L normal saline bolus, and 15 mg IV Toradol. Patient did develop some brief chest pain after Dilaudid was administered with EKG demonstrating a chronic left bundle branch block as compared to previous EKG and troponins within normal limits. Pain abated very q uickly. patient never produced a urine while in ER. Discharged in stable condition with instructions to follow-up with his PCP on Friday and return to ER for increasing pain or temperature greater than 100.5. Prescription for Bentyl was sent to patient's pharmacy and advised to take it every 6 hours as needed for pain 10/24/23 14:18 10/24/23 14:20 Counseled pt/family regarding: lab results, diagnosis, need for follow-up, rad results Medical Desision Making - Independent Historian Additional History obtained from: Mother - Diagnostic Testing Diagnostic test were ordered, analyzed, and reviewed by me: Yes Radiological Interpretation: Teleradiologist Report - Risk of complications The pt has a mod risk of morbidity or mortality based on: Need for prescription drug management - Departure Departure Disposition: Home Clinical Impression: Abdominal pain Condition: Stable Critical Care Time: No Referrals: TREVOR LY NP [Primary Care Provider] - Follow up/PCP as directed Instructions: Severe Abdominal Pain, Adult (DC) Additional Instructions: Return to ER for increasing pain or temperature greater 100.5 Bentyl every 6 hours as needed for pain Follow-up with your family MD on Friday. Prescriptions: Dicyclomine HCl 20 mg [Bentyl 20 mg] 20 mg PO QID PRN PRN #15 tablet PRN Reason: Pain
[2023-10-24] MEDS ORDERED: Zofran 4 MG/2 ML VIAL ONE (08:52)
[2023-10-24] MEDS ORDERED: SUBLIMAZE 100 MCG/2 ML ONE (08:52)
[2023-10-24] MEDS ORDERED: Lactated Ringers 1,000 ML IV ONE (08:53)
[2023-10-24] MEDS ORDERED: PIPERACILLIN/TAZOBACTAM IV ONE (08:53)
[2023-10-24] MEDS ORDERED: Sodium Chloride 100ML MINI-BAG PLUS 100 ML IV ONE (08:54)
[2023-10-24] MEDS: PIPERACILLIN/TAZOBACTAM 3.375 GM in Sodium Chloride 100ML MINI-BAG PLUS 100 ML IV ONE (08:55)
[2023-10-24] MEDS: Zofran 4 MG/2 ML VIAL IV ONE (08:56)
[2023-10-24] MEDS: Lactated Ringers 1,000 ML IV ONE (08:56)
[2023-10-24] MEDS: SUBLIMAZE 100 MCG/2 ML IV ONE (08:56)
[2023-10-24 09:13] LABS: ALBUMIN 4.5 g/dL (3.5-5.0); ANION GAP 15.1 MEQ/L (5-15); BILIRUBIN,TOTAL 0.6 mg/dL (0.2-1.3); Calcium 9.6 mg/dL (8.4-10.2); Creatinine 1 0.58 mg/dL (0.66-1.25); EST GLOMERULAR FILTRATION RATE 119.6 ML/MIN; Potassium 4.1 mmol/L (3.5-5.1); Total Protein 7.5 g/dL (6.3-8.2)
[2023-10-24 09:17] LABS: Absolute Neutrophil Ct (ANC) 4.93 x10^3/uL (1.78-5.38); BASOPHIL % 0.6 % (0.2-1.2); Basophil (Absolute #) 0.05 x10^3/uL (0.01-0.08); Eosinophil % 1.4 % (0.8-7.0); Eosinophil (Absolute #) 0.12 x10^3/uL (0.04-0.54); Hematocrit 42.4 % (40.1-51.0); Hemoglobin 14.6 g/dL (13.7-17.5); IMMATURE GRAN # 0.23 x10^3u/L (0.001-0.031); IMMATURE GRAN % 2.7 % (0.001-0.429); Lymphocyte (Absolute #) 2.66 x10^3/uL (1.32-3.57); Lymphocytes % 31.1 % (21.8-53.1); Mean Cell Volume 83.1 fL (79.0-92.2); Mean Corpuscular Hemoglobin 28.6 pg (25.7-32.2); Mean Corpuscular Hgb Concent. 34.4 g/dL (32.3-36.5); Mean Platelet Volume 10.2 fL (9.4-12.4); Monocyte (Absolute #) 0.55 x10^3/uL (0.30-0.82); Monocytes % 6.4 % (5.3-12.2); Neutrophil % 57.8 % (34.0-67.9); Platelet Count 162 x10^3/uL (163-337); Red Cell Distribution Width 13.4 % (11.6-14.4); White Blood Count 8.5 x10^3/uL (4.23-9.07)
[2023-10-24] MEDS ORDERED: Hydromorphone 1 mg/ml Injection ONE (10:17)
[2023-10-24] MEDS: Hydromorphone 1 mg/ml Injection IV ONE (10:19)
--- NOTE | 2023-10-24 11:04 | XRAY ---
CLINICAL HISTORY: RLQ pain COMPARISON: CT dated 03/27/2023. TECHNIQUE: Axial CT scan of the abdomen and pelvis was performed with IV contrast. Coronal and sagittal reconstructive images were also obtained. One of the following dose reduction techniques was utilized for this exam: Automated exposure control, adjustment of the mA and/or kV according to patient size, and use of iterative reconstruction. FINDINGS: Numerous small nodules, measuring up to 3 mm, are seen in both lower lungs (stable findings). Few patchy areas of hazy opacity with preservation of the vascular markings giving the ground glass opacification noted in the posterior basal segments of both lower lobes more on the right side suggestive of dependent density, the normal variant. Abdomen: The liver is enlarged, it measures 25.6 cm an average craniocaudal dimension with no focal parenchymal abnormality. The portal vein, intrahepatic biliary radicals, and bile ducts are normal. The gallbladder is surgically removed. The spleen, pancreas, and adrenal glands are unremarkable. The kidneys appear unremarkable with no calculi or hydronephrosis. The kidneys exhibit bilateral simple cortical cysts. The largest cyst, located in the right middle cortex, measures 3.6 x 2.6 cm and contains a small wall calcification (Bosniak II) without changes compared to the previous study. The ureters are normal with no stones. Unremarkable abdominal aorta without specific evidence of aneurysm or dissection. ?IVC is normal. The stomach appears unremarkable. Unremarkable appearing duodenum and small bowel. The ascending colon and transverse colon appear slightly widened; however, the roger are regular, with no evidence of intraluminal abnormalities. The appendix appears normal. No free air and no ascites. No free intraperitoneal air is seen. There is no evidence of significant enlargement of the mesenteric or retroperitoneal lymph nodes. The osseous structures in the lower rib cage and lumbar spine show no abnormality. Pelvis: The urinary bladder is unremarkable. The sigmoid colon appears unremarkable. A few calcifications are identified in the pelvic soft tissues, representing phleboliths. Single calcifications are noted in the normal-sized prostate, along with significant calcification of the seminal vesicles (stable findings). No evidence of pelvic lymphadenopathy. No lytic or sclerotic bone lesions. Lumbar spine degenerative changes. IMPRESSION: 1. The abdomen and pelvic CT show no acute abnormalities. 2. Fatty hepatomegaly. 3. Numerous small nodules, measuring up to 3 mm, are seen in both lower lungs (stable findings). 4. bilateral simple cortical cysts (Bosniak I, II) 5. Significant calcification of the seminal vesicles 6. No time interval changes. Electronically Signed by: Su Fallon MD. (10/24/2023 10:59:13 EDT)
[2023-10-24] MEDS: Sodium Chloride 0.9% 1000 ML 1,000 ML IV STA (13:16)
[2023-10-24 13:23] VITALS: BP 116/71; PULSE 74; RESP 15
[2023-10-24 13:37] LABS: Absolute Neutrophil Ct (ANC) 5.39 x10^3/uL (1.78-5.38); BASOPHIL % 0.8 % (0.2-1.2); Basophil (Absolute #) 0.07 x10^3/uL (0.01-0.08); Eosinophil % 1.2 % (0.8-7.0); Eosinophil (Absolute #) 0.11 x10^3/uL (0.04-0.54); Hematocrit 42.2 % (40.1-51.0); Hemoglobin 14.1 g/dL (13.7-17.5); IMMATURE GRAN # 0.11 x10^3u/L (0.001-0.031); IMMATURE GRAN % 1.2 % (0.001-0.429); Lymphocyte (Absolute #) 2.72 x10^3/uL (1.32-3.57); Mean Cell Volume 85.4 fL (79.0-92.2); Mean Corpuscular Hemoglobin 28.5 pg (25.7-32.2); Mean Corpuscular Hgb Concent. 33.4 g/dL (32.3-36.5); Monocyte (Absolute #) 0.66 x10^3/uL (0.30-0.82); Monocytes % 7.3 % (5.3-12.2); Neutrophil % 59.5 % (34.0-67.9); Platelet Count 154 x10^3/uL (163-337); Red Blood Count 4.94 x10^6/uL (4.63-6.08); Red Cell Distribution Width 13.3 % (11.6-14.4); White Blood Count 9.1 x10^3/uL (4.23-9.07)
[2023-10-24] MEDS ORDERED: TORAdol 30 mg Injection ONE (13:45)
[2023-10-24 13:46] VITALS: O2SAT 96
[2023-10-24] MEDS: TORAdol 30 mg Injection IV ONE (13:46)
== END 2023-10-24 14:02 | disposition home or self-care (01) ==
LOC: ED 08:23
DX: R10.31 Right lower quadrant pain (principal); I10 Essential (primary) hypertension; E11.9 Type 2 diabetes mellitus without complications; Z79.84 Long term (current) use of oral hypoglycemic drugs; Z79.85 Long-term (current) use of injectable non-insulin antidiabetic drugs; Z79.899 Other long term (current) drug therapy
CPT/HCPCS: 36000; 36415; 74177; 80053; 82150; 83605; 83690; 84484; 85025; 96374; 96375; 99284; J1170; J1885; J2405; J3010

== ENCOUNTER 2023-12-19 17:48 | Emergency (ER) | payer BC ==
--- NOTE | 2023-12-19 18:13 | ERPHSYRPT ---
- History of Present Illness Time Seen by Provider: 12/19/23 18:13 Source: patient Exam Limitations: no limitations Physician History: This is a 48-year-old white male patient who presents to the emergency department at the recommendation of his primary care provider who performed an outpatient x-ray of the left lower leg today at 1230 on 12/19/2023. Patient has atrial fibrillation and is on Xarelto and also has a history of hypertension and diabetes. On 12/12/2023, patient accidentally hit his mid left tibia against a metal object. Since that time there has been pain, swelling and now redness. He became concerned yesterday and called his primary care provider who started him on Keflex antibiotics. He started that medication last evening. The x-ray that was performed earlier today was interpreted by radiologist and I reviewed this outpatient x-ray pression. It stated suspicious cortical discontinuity and radiolucent line of posterior segment of tibial plafond. Patient did not arrive until approximately 6 PM this evening. Method of Injury: direct blow (On 12/12/2023) Quality: intermittent, aching Severity of Pain-Max: mild (To moderate) Severity of Pain-Current: mild (To moderate) Lower Extremities Pain: leg: left (Lower leg) Modifying Factors: Improves With: movement Associated Symptoms: other (To bear weight but can do so.) Allergies/Adverse Reactions: No Known Drug Allergies Allergy (Verified 12/19/23 19:43) Home Medications: Lisinopril 10 mg [Zestril 10 MG] 40 mg PO DAILY 01/02/17 [History] Nebivolol HCl [Bystolic] 10 mg PO HS 01/02/17 [History] Verapamil HCl Sr [Isoptin Sr] 180 mg PO DAILY 01/02/17 [History] Aspirin EC 81 mg [Ecotrin 81 mg] 81 mg PO DAILY 11/07/22 [History] Cholestyramine Light 4 gm [QUESTRAN Light 4 GM Packet] 1 packet PO UD 11/07/22 [History] Semaglutide [Ozempic] 2 mg SQ WEEKLY 11/07/22 [History] Glimepiride 3 mg PO DAILY 12/02/22 [History] Rosuvastatin Calcium 40 mg PO DAILY 12/02/22 [History] Multivitamin 1 tab PO DAILY 10/24/23 [History] Sertraline HCl 50 mg [Zoloft 50 mg Tablet] 100 mg PO DAILY 10/24/23 [History] Hx Tetanus, Diphtheria Vaccination/Date Given: Yes Hx Influenza Vaccination/Date Given: Yes Hx Pneumococcal Vaccination/Date Given: No Travel Risk - International Travel Have you traveled outside of the country in past 3 weeks: No - Emerging Infectious Disease Are you exhibiting symptoms associated with any current EIDs: Yes Symptoms: Abdominal Pain - Review of Systems Constitutional: No Symptoms Eyes: No Symptoms Ears, Nose, & Throat: No Symptoms Respiratory: No Symptoms Cardiac: No Symptoms Abdominal/Gastrointestinal: No Symptoms Genitourinary Symptoms: No Symptoms Musculoskeletal: No Symptoms Skin: Other (There are healing eschars present anterior tibia mid level left side with associated subcutaneous hematoma and distal ecchymosis as expected.) Neurological: No Symptoms Psychological: No Symptoms Endocrine: No Symptoms Hematologic/Lymphatic: No Symptoms Immunological/Allergic: No Symptoms All Other Systems: Reviewed and Negative - Past Medical History Pertinent Past Medical History: Yes Neurological History: No Pertinent History ENT History: No Pertinent History Cardiac History: Coronary Artery Disease, Hypertension Respiratory History: Sleep Apnea Endocrine Medical History: Diabetes Type II Musculoskeletal History: No Pertinent History GI Medical History: No Pertinent History History: Other Psycho-Social History: No Pertinent History Male Reproductive Disorders: No Pertinent History Other Medical History: atrial fib, lung nodules, fatty liver, kidney cyst, kidney stones. Cardiology: [facility] - Past Surgical History Past Surgical History: Yes Neuro Surgical History: No Pertinent History Cardiac: Cardiac Catheterization Respiratory: No Pertinent History Gastrointestinal: Cholecystectomy Genitourinary: No Pertinent History Musculoskeletal: No Pertinent History Male Surgical History: No Pertinent History Other Surgical History: nasal, DEVIATED SEPTUM - Social History Smoking Status: Never smoker Exposure to second hand smoke: No Drug Use: none Patient Lives Alone: No - Social Determinants of Health Will the patient participate in the screening: Yes Do you worry about a steady place to live?: No In the past 12 months,have you had to go without utilities?: No Transportation Issues: No Has anyone in your support network made you feel unsafe?: No Have you or anyone in your house had to go without enough: No - Nursing Vital Signs Nursing Vital Signs: Initial Vital Signs Temperature 98.5 F 12/19/23 18:07 Pulse Rate 83 12/19/23 18:07 Respiratory Rate 20 12/19/23 18:07 Blood Pressure 126/86 12/19/23 18:07 O2 Sat by Pulse Oximetry 95 12/19/23 18:07 Pain Scale Pain Intensity 6 - Physical Exam General Appearance: no apparent distress, alert Eyes, Ears, Nose, Throat Exam: normal ENT inspection, moist mucous membranes Neck Exam: normal inspection, non-tender, supple, full range of motion Cardiovascular/Respiratory Exam: chest non-tender, no respiratory distress Gastrointestinal/Abdominal Exam: non-tender Back Exam: normal inspection, normal range of motion, No CVA tenderness, No vertebral tenderness Hips Exam: bilateral: non-tender, normal inspection, normal range of motion, no evidence of injury Legs Exam: right leg: non-tender, normal inspection, normal range of motion, no evidence of injury, left leg: bone tenderness (Below the knee anterior tibial region.), ecchymosis, swelling, other (Subcutaneous, superficial hematoma) Knees Exam: bilateral knee: non-tender, normal inspection, normal range of motion, no evidence of injury Ankle Exam: left ankle: ecchymosis (As expected in this patient that is on Xarelto after injury 1 week ago), bilateral ankle: non-tender, normal range of motion, no evidence of injury Foot Exam: bilateral foot: non-tender, normal inspection, normal range of motion, no evidence of injury Neuro/Tendon Exam: normal sensation, normal motor functions, normal tendon functions, responds to pain, no evidence tendon injury Mental Status Exam: alert, oriented x 3, cooperative Skin Exam: ecchymosis, other (The above) SpO2 Interpretation: normal O2 Delivery: Room Air - Course Nursing assessment & vital signs reviewed: Yes Ordered Tests: Active Orders 24 hr Category Date Time Status LOWER EXTREMITY WO CONTRAST [CT] Stat Exams 12/19/23 18:34 Taken - Progress Progress: unchanged Progress Note: 12/19/23 19:21 My medical decision making and the assignment of low complexity to this patient's medical issue today is based on review of the patient's past medical history, review the patient's medication list, review the patient drug allergy list, history present illness and physical findings on examination. The workup in this patient includes CT scan of the left lower extremity below the knee. Differential diagnosis includes but is not limited to tibial fracture, tibial contusion with subcutaneous hematoma 12/19/23 19:[address] scan of the left lower leg was interpreted by the radiologist and I reviewed the impression. The impression states anterior soft tissue swelling. Otherwise normal tubefib CT scan. The plain x-ray findings are artifactual per radiologist. Counseled pt/family regarding: diagnosis, need for follow-up, rad results Medical Desision Making - Diagnostic Testing Diagnostic test were ordered, analyzed, and reviewed by me: Yes Radiological Interpretation: Reviewed by me, Teleradiologist Report - Risk of complications Minimal Risk: Minimal risk of morbidity - Departure Departure Disposition: Home Clinical Impression: Pain of left lower extremity due to injury Condition: Stable Critical Care Time: No Referrals: [facility] [Primary Care Provider] - Follow up/PCP as directed Additional Instructions: Alternate ice and heat to the area every 4 hours while awake for the next 48 hours. Continue your antibiotics and other medications as prescribed. Weightbearing as tolerated.
[2023-12-19 18:27] VITALS: TEMP 98.5
[2023-12-19 19:45] VITALS: RESP 18
[2023-12-19 20:44] VITALS: BP 122/70; PULSE 86; O2SAT 98
--- NOTE | 2023-12-19 21:45 | XRAY ---
Indication: Left lower extremity injury. Abnormal left lower leg radiograph. Multiple contiguous axial images obtained through left tibia/fibula without contrast. Sagittal and coronal reformatted images obtained. Comparison: None No acute fracture, suspicious bone lesions, or osseous destructive process. Medial malleolus tip demonstrates tiny well-circumscribed heterotopic ossification either developmental versus old injury. Tiny posterior heel spur. Visualized noncontrasted soft tissues demonstrates mild anterior soft tissue swelling and minimal scattered arteriosclerotic calcifications. No focal solid or cystic soft tissue mass or abnormal fluid collection. The visualized left knee and left ankle unremarkable. Impression: Anterior soft tissue swelling, arteriosclerotic disease, tiny heel spur, and tiny medial malleolus tip heterotopic ossification. No acute findings. Tibial plafond finding reported on same day radiograph felt to be artifactual.
== END 2023-12-19 20:37 | disposition home or self-care (01) ==
LOC: ED 17:48
DX: M79.662 Pain in left lower leg (principal); S89.92XA Unspecified injury of left lower leg, initial encounter; W22.09XA Striking against other stationary object, initial encounter; I10 Essential (primary) hypertension; E11.9 Type 2 diabetes mellitus without complications; Z79.01 Long term (current) use of anticoagulants; Z79.84 Long term (current) use of oral hypoglycemic drugs; Z79.85 Long-term (current) use of injectable non-insulin antidiabetic drugs
CPT/HCPCS: 73700; 99282